=== PATIENT | female | born 1975 | race Caucasian/White ===

== ENCOUNTER 2017-09-28 06:56 | Inpatient (IN) | payer BC, OTHER ==
[2017-09-28] MEDS ORDERED: Sodium Chloride 0.9% 1000 ML 1,000 ML IV STA (07:38)
[2017-09-28] MEDS ORDERED: BENADRYL 50 MG/ML IV ONE (07:38)
[2017-09-28] MEDS ORDERED: Hydromorphone 1 mg/ml Ampule IV ONE (07:38)
[2017-09-28] MEDS ORDERED: DECADRON 10MG INJ. IV ONE (07:45)
--- NOTE | 2017-09-28 07:45 | ERPHSYRPT ---
- History of Present Illness Time Seen by Provider: 09/28/17 07:38 Source: patient Patient Subjective Stated Complaint: pt here for sore throat, she states about a week a she had strep throat and states she does not think it went away. fever at home Triage Nursing Assessment: pt alert, moaning and crying, walked in, resp easy.skin w/d/p. runny nose, throat red, Physician History: CC: sore throat Hx: 42 y/o patient formerly saw Dr Olivier. She had strep throat 2 weeks ago and was treated with PCN. She has hx of recurrent tonsillitis. She has return of sore throat, toothache, cough, fever, face pain, lymph node swelling. Severe in nature. No stridoe or diff breathing. Prior BTL and ablation. NKA. Timing/Duration: day(s) (few) Allergies/Adverse Reactions: No Known Drug Allergies Allergy (Unverified 09/28/17 07:13) Home Medications: No Reportable Medications [No Reported Medications] 09/28/17 [History] Hx Influenza Vaccination/Date Given: No Hx Pneumococcal Vaccination/Date Given: No Immunizations Up to Date: Yes - Review of Systems Constitutional: Fever, Fatigue, Malaise Eyes: No Symptoms, No Double Vision Ears, Nose, & Throat: Nose Congestion Respiratory: Cough Abdominal/Gastrointestinal: No Nausea, No Vomiting, No Diarrhea Skin: No Rash Neurological: No Headache All Other Systems: Reviewed and Negative - Past Medical History Pertinent Past Medical History: No - Past Surgical History Past Surgical History: Yes Female Surgical History: Tubal Ligation, Other Other Surgical History: ablasion - Social History Smoking Status: Current every day smoker Exposure to second hand smoke: Yes Drug Use: none Patient Lives Alone: No - Female History Hx Last Menstrual Period: post Hx Now: (BTL, ablation, HCG pending) - Nursing Vital Signs Nursing Vital Signs: Initial Vital Signs Temperature 98.7 F 09/28/17 07:06 Pulse Rate 106 H 09/28/17 07:06 Respiratory Rate 22 09/28/17 07:06 Blood Pressure 136/81 09/28/17 07:06 O2 Sat by Pulse Oximetry 97 09/28/17 07:06 Pain Scale Pain Intensity 5 - Physical Exam General Appearance: alert, thin Eye Exam: PERRL/EOMI Ears, Nose, Throat Exam: TMs normal, dry mucous membranes, other (large tonsils , fullness, left tonsil appears larger with possible abscess. No exudate. Tender anterior cervical LAD worse on left.) Neck Exam: No meningismus Respiratory Exam: normal breath sounds, lungs clear Cardiovascular Exam: regular rate/rhythm Gastrointestinal/Abdomen Exam: soft, No tenderness, No distention Extremity Exam: normal inspection, normal range of motion Neurologic Exam: alert, oriented x 3, cooperative, sensation nml, No motor deficits Skin Exam: warm, dry, No rash SpO2 Interpretation: normal SpO2: 97 Oxygen Delivery: Room Air - Course Nursing assessment & vital signs reviewed: Yes - CT Exams soft tissue neck CT Interpretation: Tele-radiologist Report (enlarged palatine tonsils favoring tonsillitis with left sided micro-abscess, bilateral cervical LAD presumed reactive.) Ordered Tests: Active Orders 24 hr Category Date Time Status IV Insertion STAT Care 09/28/17 07:38 Active NECK WITH CONTRAST [CT] Stat Exams 09/28/17 07:40 Completed CBC W DIFF Stat Lab 09/28/17 07:50 Completed CMP Stat Lab 09/28/17 07:50 Completed CULTURE, THROAT Stat Lab 09/28/17 07:50 Received HCG QUALITATIVE,SERUM Stat Lab 09/28/17 07:50 Completed Lactic Acid Stat Lab 09/28/17 07:46 Completed Manual Differential NC Stat Lab 09/28/17 07:50 Completed Borden Screen Stat Lab 09/28/17 07:50 Completed STREP SCREEN-BETA A Stat Lab 09/28/17 07:50 Completed Medication Summary Discontinued Medications Generic Name Dose Route Start Last Admin Trade Name Freq PRN Reason Stop Dose Admin Diphenhydramine HCl 25 mg 09/28/17 07:38 09/28/17 07:55 Benadryl 50 Mg/Ml IV 09/28/17 07:39 25 mg STAT ONE Administration Diphenhydramine HCl Confirm 09/28/17 07:53 Benadryl 50 Mg/Ml Administered 09/28/17 07:54 Dose 50 mg .ROUTE .STK-MED ONE Hydromorphone HCl 1 mg 09/28/17 07:38 09/28/17 07:55 Hydromorphone 1 Mg/Ml Ampule IV 09/28/17 07:39 1 mg STAT ONE Administration Hydromorphone HCl Confirm 09/28/17 07:53 Dilaudid 2 Mg Injection Administered 09/28/17 07:54 Dose 2 mg .ROUTE .STK-MED ONE Sodium Chloride 1,000 mls @ 999 mls/hr 09/28/17 07:38 09/28/17 07:55 Sodium Chloride 0.9% 1000 Ml IV 09/28/17 08:38 999 mls/hr .Q1H1M STA Administration Dexamethasone Sodium Phosphate 51 mls @ 102 mls/hr 09/28/17 08:00 09/28/17 08 :07 10 mg/ Sodium Chloride IV 09/28/17 08:29 102 mls/hr 0800 ARTURO Administration Sodium Chloride Confirm 09/28/17 07:53 Sodium Chloride 0.9% 1000 Ml Administered 09/28/17 07:54 Dose 1,000 mls @ ud .ROUTE .STK-[facility] ONE Ampicillin Sodium/Sulbactam Sodium 3 gm in 100 mls @ 200 mls/hr 09/28/17 08: 30 09/28/17 09:24 Unasyn 3gm / Nacl 100ml IV 09/28/17 08:59 200 mls/hr STAT STA Administration Ampicillin Sodium/Sulbactam Sodium Confirm 09/28/17 09:17 Unasyn 3gm / Nacl 100ml Administered 09/28/17 09:18 Dose 3 gm in 100 mls @ ud .ROUTE .[facility] ONE Lab/Rad Data: Laboratory Result Diagrams 09/28/17 07:50 09/28/17 07:50 Laboratory Results 09/28/17 09/28/17 09/28/17 Range/Units 07:50 07:50 07:50 WBC (4.0-10.5) K/mm3 RBC (4.1-5.4) M/mm3 Hgb (12.0-16.0) gm/dl Hct (35-47) % MCV (78-100) fl MCH (26-32) pg MCHC (32-36) g/dl RDW (11.5-14.0) % Plt Count (150-450) K/mm3 MPV (6-9.5) fl Segmented Neutrophils (36.0-66.0) % Lymphocytes (Manual) (24-44) % Monocytes (Manual) (0.0-12.0) % Basophils (Manual) (0.0-1.0) % Differential Comment Platelet Estimate (NORMAL) Sodium 139 (137-145) mmol/L Potassium 3.5 (3.5-5.1) mmol/L Chloride 104 (98-107) mEq/L Carbon Dioxide 25 (22-30) mmol/L Anion Gap 14.1 (5-15) MEQ/L BUN 8 (7-17) mg/dl Creatinine 0.57 (0.52-1.04) mg/dl Estimated GFR > 60 ML/MIN Glucose 90 (74-106) mg/dL Lactic Acid (0.4-2.0) Calcium 9.2 (8.4-10.2) mg/dL Total Bilirubin 0.70 (0.2-1.3) mg/d? AST 14 (14-36) U/L ALT 12 (0-35) U/L Alkaline Phosphatase 134 H (38-126) U/L Serum Total Protein 7.9 (6.3-8.2) mg/dl Albumin 3.9 (3.5-5.0) g/dl Serum , Qual NEGATIVE (Negative) Monoscreen NEGATIVE (Negative) Streptococcus Screen NEGATIVE (Negative) 09/28/17 09/28/17 Range/Units 07:50 07:46 WBC 19.8 H (4.0-10.5) K/mm3 RBC 4.48 (4.1-5.4) M/mm3 Hgb 14.1 (12.0-16.0) gm/dl Hct 42.2 (35-47) % MCV 94.2 (78-100) fl MCH 31.5 (26-32) pg MCHC 33.4 (32-36) g/dl RDW 13.6 (11.5-14.0) % Plt Count 426 (150-450) K/mm3 MPV 9.4 (6-9.5) fl Segmented Neutrophils 87 H (36.0-66.0) % Lymphocytes (Manual) 6 L (24-44) % Monocytes (Manual) 5 (0.0-12.0) % Basophils (Manual) 2 H (0.0-1.0) % Differential Comment NORMAL Platelet Estimate NORMAL (NORMAL) Sodium (137-145) mmol/L Potassium (3.5-5.1) mmol/L Chloride (98-107) mEq/L Carbon Dioxide (22-30) mmol/L Anion Gap (5-15) MEQ/L BUN (7-17) mg/dl Creatinine (0.52-1.04) mg/dl Estimated GFR ML/MIN Glucose (74-106) mg/dL Lactic Acid 0.9 (0.4-2.0) Calcium (8.4-10.2) mg/dL Total Bilirubin (0.2-1.3) mg/d? AST (14-36) U/L ALT (0-35) U/L Alkaline Phosphatase (38-126) U/L Serum Total Protein (6.3-8.2) mg/dl Albumin (3.5-5.0) g/dl Serum , Qual (Negative) Monoscreen (Negative) Streptococcus Screen (Negative) - Progress Progress Note: 09/28/17 07:[address] to evaluate for tonsillar abscess. 09/28/17 11:25 IV decadron given. IV Unasyn given. CAlled Dr Crocker (oc) and will place in obs for IV abtx. Pt agrees. Discussed with : Obi Will see patient in: hospital (observation) Counseled pt/family regarding: lab results, diagnosis, need for follow-up, rad results - Departure Time of Disposition: 11:25 Departure Disposition: Observation Clinical Impression: Acute tonsillitis, tonsilar microabscesses Condition: Fair Critical Care Time: No
[2017-09-28] MEDS ORDERED: BENADRYL 50 MG/ML ONE (07:53)
[2017-09-28] MEDS ORDERED: DILAUDID 2 MG INJECTION ONE (07:53)
[2017-09-28] MEDS ORDERED: Sodium Chloride 0.9% 1000 ML 1,000 ML ONE (07:53)
[2017-09-28] MEDS ORDERED: DECADRON IV SCH (08:00)
[2017-09-28] MEDS ORDERED: SODIUM CHLORIDE 0.9% IV SCH (08:00)
[2017-09-28 08:04] LABS: Hematocrit 42.2 % (35-47); Hemoglobin 14.1 gm/dl (12.0-16.0); Mean Cell Volume 94.2 fl (78-100); Mean Corpuscular Hemoglobin 31.5 pg (26-32); Mean Corpuscular Hgb Concent. 33.4 g/dl (32-36); Mean Platelet Volume 9.4 fl (6-9.5); Platelet Count 426 K/mm3 (150-450); Red Blood Count 4.48 M/mm3 (4.1-5.4); Red Cell Distribution Width 13.6 % (11.5-14.0); White Blood Count 19.8 K/mm3 (4.0-10.5)
[2017-09-28 08:27] LABS: ALBUMIN 3.9 g/dl (3.5-5.0); ALKALINE PHOSPHATASE 134 U/L (38-126); ANION GAP 14.1 MEQ/L (5-15); BLOOD UREA NITROGEN 8 mg/dl (7-17); CHLORIDE 104 mEq/L (98-107); Calcium 9.2 mg/dL (8.4-10.2); Carbon Dioxide 25 mmol/L (22-30); Creatinine 1 0.57 mg/dl (0.52-1.04); Glucose 90 mg/dL (74-106); Potassium 3.5 mmol/L (3.5-5.1); SGOT/AST 14 U/L (14-36); SGPT/ALT 12 U/L (0-35); SODIUM 139 mmol/L (137-145); Total Protein 7.9 mg/dl (6.3-8.2)
[2017-09-28 08:28] LABS: HCG QUALITATIVE,SERUM NEGATIVE (Negative); Mono Screen NEGATIVE (Negative)
[2017-09-28] MEDS ORDERED: Unasyn 3GM / NaCl 100ML 3 GM/100 ML IVPB IV STA (08:30)
[2017-09-28 08:40] LABS: Basophil 2 % (0.0-1.0); Lymphocytes 6 % (24-44); Monocyte 5 % (0.0-12.0); Neutrophils 87 % (36.0-66.0); Platelet Estimate NORMAL (NORMAL); Total Cells Counted 100
[2017-09-28 08:41] LABS: Granulocyte Absolute (ANC) 17.2 (1.4-6.9)
[2017-09-28] MEDS ORDERED: Unasyn 3GM / NaCl 100ML 3 GM/100 ML IVPB ONE (09:17)
--- NOTE | 2017-09-28 10:15 | XRAY ---
Indication: Sore throat. Possible tonsillar abscess. Multiple contiguous axial images obtained through the neck using 80 cc Isovue 370 contrast. Sagittal and coronal reformatted images obtained. Comparison: None [place] tonsils are bilaterally enlarged markedly narrowing the oropharynx. There are a few left-sided micro-abscesses, largest 8 x 13 mm. Several enlarged bilateral cervical lymph nodes, largest 1.7 x 2.3 cm just lateral to the left carotid bulb. Additional smaller scattered centimeter/subcentimeter cervical, submandibular, and supraclavicular nodes. Remaining supra and infraglottic airway widely patent. Normal epiglottis. Major arteries and veins are normal in course and caliber. Thyroid gland enhances homogeneously. Parotid and submandibular glands bilaterally symmetric. Visualized osseous structures and cervical spine intact. Base of the brain unremarkable. Minimal biapical subpleural cystic changes. Impression: 1. Enlarged palatine tonsils favoring tonsillitis with left-sided micro-abscesses. 2. Bilateral cervical lymphadenopathy presumed reactive. CT DI 11.13
[2017-09-28] MEDS ORDERED: TYLENOL 325 MG PO PRN (12:00)
[2017-09-28] MEDS: Unasyn 1.5GM / NaCl 100ML 1.5 GM/100 ML IVPB IV SCH ×3 (12:32→23:24)
[2017-09-28] MEDS: D5W/0.45NS W/ 20mEq KCl 1000 ML 1,000 ML IV SCH ×2 (12:50→23:24)
[2017-09-28] MEDS: DILAUDID 2 MG INJECTION IV PRN ×3 (12:58→23:23)
[2017-09-29] MEDS: DILAUDID 2 MG INJECTION IV PRN ×4 (04:45→20:06)
[2017-09-29] MEDS: Unasyn 1.5GM / NaCl 100ML 1.5 GM/100 ML IVPB IV SCH ×4 (05:22→23:00)
[2017-09-29 05:35] LABS: Hematocrit 35.7 % (35-47); Hemoglobin 11.7 gm/dl (12.0-16.0); Mean Cell Volume 96.2 fl (78-100); Mean Corpuscular Hemoglobin 31.5 pg (26-32); Mean Corpuscular Hgb Concent. 32.8 g/dl (32-36); Mean Platelet Volume 9.3 fl (6-9.5); Platelet Count 374 K/mm3 (150-450); Red Blood Count 3.71 M/mm3 (4.1-5.4); Red Cell Distribution Width 13.6 % (11.5-14.0); White Blood Count 18.6 K/mm3 (4.0-10.5)
[2017-09-29 06:02] LABS: ALBUMIN 3.1 g/dl (3.5-5.0); ALKALINE PHOSPHATASE 92 U/L (38-126); ANION GAP 11.1 MEQ/L (5-15); BLOOD UREA NITROGEN 6 mg/dl (7-17); CHLORIDE 107 mEq/L (98-107); Calcium 8.4 mg/dL (8.4-10.2); Carbon Dioxide 25 mmol/L (22-30); Creatinine 1 0.48 mg/dl (0.52-1.04); Glucose 111 mg/dL (74-106); Potassium 4.4 mmol/L (3.5-5.1); SGOT/AST 9 U/L (14-36); SGPT/ALT 10 U/L (0-35); SODIUM 138 mmol/L (137-145); Total Protein 6.6 mg/dl (6.3-8.2)
[2017-09-29 06:26] LABS: Lymphocytes 12 % (24-44); Monocyte 5 % (0.0-12.0); Neutrophils 83 % (36.0-66.0); Platelet Estimate NORMAL (NORMAL); Total Cells Counted 100; Toxic Granulation 1+
--- NOTE | 2017-09-29 08:53 | PCM.HP ---
History of Present Illness - Chief Complaint Chief Complaint: acute tonsilitis, tonsilar microabcesses History of Present Illness: is a 42 year old female pt with no local MD who c/o sore throat for several weeks. She has been to [facility] ER and was treated for sore throat and took all the penicillin without improvement. She was having fever to 102 at home and fatigue. Not eating much. Was having increased pain and came to [facility] ER where she was found on CT to have microabscesses on the L. Given dexamethasone x1 and admitted on IV unasyn. This morning she is somewhat better , tolerating jello but would like a soft diet. Afebrile. - Review of Systems Constitutional: Fever, Weakness Ears, Nose, & Throat: Ear Pain (on L), Throat Pain Cardiac: Chest Pain (with breathing at times; hx asthma ) Psychological: Anxiety, Depression, No Suicidal Ideations All Other Systems: Reviewed and Negative Medications & Allergies Home Medications: Home Medication List No Reportable Medications [No Reported Medications] 09/28/17 [History Confirmed 09/28/17] Allergies/Adverse Reactions: Allergies Allergy/AdvReac Type Severity Reaction Status Date / Time No Known Drug Allergies Allergy Unverified 09/28/17 07:13 - Past Medical History Past Medical History: No Neurological History: No Pertinent History ENT History: No Pertinent History Cardiac History: No Pertinent History Respiratory History: Asthma Endocrine Medical History: No Pertinent History Musculoskelatal History: Arthritis GI Medical History: No Pertinent History History: No Pertinent History Pyscho-Social History: Anxiety Reproductive Disorders: No Pertinent History - Female History Hx Last Menstrual Period: hyst Are you now?: No - Past Surgical History Past Surgical History: Yes Female Surgical History: Tubal Ligation, Other Other Surgical History: ablasion - Social History Smoking Status: Current every day smoker Exposure to second hand smoke: Yes Alcohol: None Drug Use: none - Physical Exam Vital Signs: Vital Signs - 24 hr Temp Pulse Resp BP Pulse Ox 09/29/17 07:26 97.9 F 96 H 18 131/86 97 09/29/17 04:15 97.4 F 78 22 141/87 97 09/29/17 00:21 97.6 F 87 20 130/95 97 09/28/17 19:53 97.5 F 90 18 127/74 96 09/28/17 16:06 97.9 F 90 18 126/88 98 09/28/17 12:21 97.4 F 88 14 125/80 96 09/28/17 12:00 97.4 F 88 14 125/80 96 09/28/17 11:26 97 09/28/17 09:35 90 16 124/87 98 General Appearance: mild distress Neurologic Exam: oriented x 3, cooperative Eye Exam: eyes nml inspection Ears, Nose, Throat Exam: TMs normal, other (oropharynx erythematous, no exudate , tonsils 2-3+) Neck Exam: other (appears somewhat edematous bilat, L>R. ttp L>R. bilat cervical LAD L>R) Respiratory Exam: normal breath sounds, lungs clear, No crackles/rales, No rhonchi, No wheezing Cardiovascular Exam: regular rate/rhythm, normal heart sounds, No murmur Gastrointestinal/Abdomen Exam: soft, normal bowel sounds, No tenderness, No distention, No mass, No guarding, No rebound Back Exam: normal inspection, No rash Skin Exam: normal color, warm, dry, No rash Results - Labs Lab/Micro Results: Lab Results-Last 24 Hours 09/29/17 09/29/17 Range/Units 05:18 05:18 WBC 18.6 H (4.0-10.5) K/mm3 RBC 3.71 L (4.1-5.4) M/mm3 Hgb 11.7 L (12.0-16.0) gm/dl Hct 35.7 (35-47) % MCV 96.2 (78-100) fl MCH 31.5 (26-32) pg MCHC 32.8 (32-36) g/dl RDW 13.6 (11.5-14.0) % Plt Count 374 (150-450) K/mm3 MPV 9.3 (6-9.5) fl Segmented Neutrophils 83 H (36.0-66.0) % Lymphocytes (Manual) 12 L (24-44) % Monocytes (Manual) 5 (0.0-12.0) % Differential Comment NORMAL Toxic Granulation 1+ Platelet Estimate NORMAL (NORMAL) Sodium 138 (137-145) mmol/L Potassium 4.4 (3.5-5.1) mmol/L Chloride 107 (98-107) mEq/L Carbon Dioxide 25 (22-30) mmol/L Anion Gap 11.1 (5-15) MEQ/L BUN 6 L (7-17) mg/dl Creatinine 0.48 L (0.52-1.04) mg/dl Estimated GFR > 60 ML/MIN Glucose 111 H (74-106) mg/dL Calcium 8.4 (8.4-10.2) mg/dL Total Bilirubin 0.20 (0.2-1.3) mg/d? AST 9 L (14-36) U/L ALT 10 (0-35) U/L Alkaline Phosphatase 92 (38-126) U/L Serum Total Protein 6.6 (6.3-8.2) mg/dl Albumin 3.1 L (3.5-5.0) g/dl Assessment/Plan (1) Acute tonsillitis Current Visit: Yes Status: Acute Assessment & Plan: On Unasyn IV with some improvement. Will add more steroids. increase diet to soft. Code(s): J03.90 - ACUTE TONSILLITIS, UNSPECIFIED (2) Depression Current Visit: Yes Status: Chronic Qualifiers: Depression Type: major depressive disorder Active/Remission status: currently active Psychotic features: without psychotic features Assessment & Plan: Will restart her celexa; was on it 2 yrs ago. Code(s): F32.9 - MAJOR DEPRESSIVE DISORDER, SINGLE EPISODE, UNSPECIFIED
[2017-09-29] MEDS ORDERED: CHLORASEPTIC SPRAY 180 ML PO PRN (09:02)
[2017-09-29] MEDS: ceLEXa 20 MG PO SCH (09:44)
[2017-09-29] MEDS: solu-MEDROL 40 MG IV SCH ×3 (09:44→22:53)
[2017-09-29] MEDS: D5W/0.45NS W/ 20mEq KCl 1000 ML 1,000 ML IV SCH ×2 (11:17→22:59)
[2017-09-30] MEDS: DILAUDID 2 MG INJECTION IV PRN (05:16)
[2017-09-30] MEDS: solu-MEDROL 40 MG IV SCH ×3 (05:18→21:28)
[2017-09-30] MEDS: Unasyn 1.5GM / NaCl 100ML 1.5 GM/100 ML IVPB IV SCH ×4 (05:18→23:43)
--- NOTE | 2017-09-30 08:54 | PCM.NOTE ---
Date and Time: 09/30/17 0849 Subjective Assessment: patient reports she is feeling much better today, tolerating po intake. swelling in neck is improved at this time. Objective Exam General Appearance: no apparent distress, alert Skin Exam: normal color, warm, dry Eye Exam: PERRL, EOMI, eyes nml inspection Ears, Nose, Throat Exam: pharyngeal erythema, other (mild adenopathy in the neck ) Respiratory Exam: normal breath sounds, lungs clear, No respiratory distress Cardiovascular Exam: regular rate/rhythm, normal heart sounds Gastrointestinal/Abdomen Exam: soft, No tenderness, No mass OBJECTIVE DATA Vital Signs: Vital Signs - 24 hr Temp Pulse Resp BP Pulse Ox 09/30/17 07:20 97.4 F 80 16 144/88 95 09/30/17 03:42 98.2 F 70 16 135/89 96 09/30/17 00:00 97.4 F 68 18 161/91 96 09/29/17 20:00 97.4 F 84 18 135/90 95 09/29/17 16:00 97.8 F 98 H 18 133/82 96 09/29/17 11:38 98 F 92 H 18 125/81 98 Pain Assessment - Last Documented Pain Intensity 4 Pain Scale Used 0-10 Pain Scale Intake and Output: Intake & Output 09/27/17 09/28/17 09/29/17 09/30/17 11:59 11:59 11:59 11:59 Intake Total 4537 Balance 4537 Assessment/Plan (1) Tonsillar abscess Current Visit: Yes Status: Acute Assessment & Plan: continue IV Unasyn Code(s): J36 - PERITONSILLAR ABSCESS (2) Acute tonsillitis Current Visit: Yes Status: Acute Code(s): J03.90 - ACUTE TONSILLITIS, UNSPECIFIED (3) Failure of outpatient treatment Current Visit: Yes Status: Acute Code(s): Z78.9 - OTHER SPECIFIED HEALTH STATUS
[2017-09-30] MEDS: ceLEXa 20 MG PO SCH (10:19)
[2017-09-30] MEDS: D5W/0.45NS W/ 20mEq KCl 1000 ML 1,000 ML IV SCH ×2 (10:19→21:28)
[2017-10-01 04:36] VITALS: PULSE 66
[2017-10-01] MEDS: Unasyn 1.5GM / NaCl 100ML 1.5 GM/100 ML IVPB IV SCH (05:58)
[2017-10-01] MEDS: solu-MEDROL 40 MG IV SCH (05:58)
[2017-10-01 05:59] LABS: Hematocrit 37.7 % (35-47); Hemoglobin 12.6 gm/dl (12.0-16.0); Mean Corpuscular Hemoglobin 31.4 pg (26-32); Mean Corpuscular Hgb Concent. 33.4 g/dl (32-36); Mean Platelet Volume 9.5 fl (6-9.5); Platelet Count 396 K/mm3 (150-450); Red Blood Count 4.01 M/mm3 (4.1-5.4); Red Cell Distribution Width 13.2 % (11.5-14.0); White Blood Count 12.4 K/mm3 (4.0-10.5)
[2017-10-01 06:30] LABS: ALBUMIN 3.2 g/dl (3.5-5.0); ALKALINE PHOSPHATASE 89 U/L (38-126); ANION GAP 12.8 MEQ/L (5-15); BLOOD UREA NITROGEN 5 mg/dl (7-17); CHLORIDE 105 mEq/L (98-107); Calcium 8.7 mg/dL (8.4-10.2); Carbon Dioxide 25 mmol/L (22-30); Creatinine 1 0.45 mg/dl (0.52-1.04); Glucose 133 mg/dL (74-106); Potassium 3.9 mmol/L (3.5-5.1); SGOT/AST 13 U/L (14-36); SGPT/ALT 16 U/L (0-35); SODIUM 138 mmol/L (137-145); Total Protein 6.9 mg/dl (6.3-8.2)
[2017-10-01 07:13] VITALS: BP 182/83; O2SAT 98
[2017-10-01 07:49] LABS: Lymphocytes 13 % (24-44); Monocyte 2 % (0.0-12.0); Neutrophils 85 % (36.0-66.0); Platelet Estimate NORMAL (NORMAL); Total Cells Counted 100; Toxic Granulation 1+
--- NOTE | 2017-10-01 08:30 | PCM.DS ---
Discharge Summary Date of Admission: 09/29/17 09:48 Admitting Physician: IWONA CROCKER Primary Care Provider: NO FAMILY DOCTOR Allergies Allergies No Known Drug Allergies Allergy (Unverified 09/28/17 07:13) Hospital Summary - Hospital Course Hospital Course: patient admitted by Dr Crocker with tonsillitis and peritonsillar microabscess on ct, has improved drastically with IV unasyn and steroids, tolerating po and swelling has resolved in the side of her neck. she had failed outpatient therapy with liquid penicillin prior to admission. - Vitals & Intake/Output Vital Signs: Vital Signs Temperature 98.9 F 10/01/17 07:12 Pulse Rate 66 10/01/17 07:12 Respiratory Rate 16 10/01/17 07:12 Blood Pressure 182/83 10/01/17 07:12 O2 Sat by Pulse Oximetry 98 10/01/17 07:12 Intake & Output: Intake & Output 09/28/17 09/29/17 09/30/17 10/01/17 11:59 11:59 11:59 12:59 Intake Total 4897 3239 Balance 4897 3239 - Lab Result Diagrams: 10/01/17 05:59 10/01/17 05:59 Lab Results-Last 24 Hrs: Lab Results-Last 24 Hours 10/01/17 10/01/17 Range/Units 05:59 05:59 WBC 12.4 H (4.0-10.5) K/mm3 RBC 4.01 L (4.1-5.4) M/mm3 Hgb 12.6 (12.0-16.0) gm/dl Hct 37.7 (35-47) % MCV 94.0 (78-100) fl MCH 31.4 (26-32) pg MCHC 33.4 (32-36) g/dl RDW 13.2 (11.5-14.0) % Plt Count 396 (150-450) K/mm3 MPV 9.5 (6-9.5) fl Segmented Neutrophils 85 H (36.0-66.0) % Lymphocytes (Manual) 13 L (24-44) % Monocytes (Manual) 2 (0.0-12.0) % Differential Comment NORMAL Toxic Granulation 1+ Platelet Estimate NORMAL (NORMAL) Sodium 138 (137-145) mmol/L Potassium 3.9 (3.5-5.1) mmol/L Chloride 105 (98-107) mEq/L Carbon Dioxide 25 (22-30) mmol/L Anion Gap 12.8 (5-15) MEQ/L BUN 5 L (7-17) mg/dl Creatinine 0.45 L (0.52-1.04) mg/dl Estimated GFR > 60 ML/MIN Glucose 133 H (74-106) mg/dL Calcium 8.7 (8.4-10.2) mg/dL Total Bilirubin 0.20 (0.2-1.3) mg/d? AST 13 L (14-36) U/L ALT 16 (0-35) U/L Alkaline Phosphatase 89 (38-126) U/L Serum Total Protein 6.9 (6.3-8.2) mg/dl Albumin 3.2 L (3.5-5.0) g/dl Discharge Exam General Appearance: no apparent distress, alert Skin Exam: normal color, warm, dry Eye Exam: PERRL, EOMI, eyes nml inspection Ears, Nose, Throat Exam: normal ENT inspection, pharynx normal, moist mucous membranes Neck Exam: normal inspection, non-tender, supple, full range of motion, No lymphadenopathy (resolved) Respiratory Exam: normal breath sounds, lungs clear, No respiratory distress Cardiovascular Exam: regular rate/rhythm, normal heart sounds Extremity Exam: normal inspection, normal range of motion Final Diagnosis/Problem List - Final Discharge Diagnosis/Problem (1) Tonsillar abscess Current Visit: Yes Status: Acute (2) Acute tonsillitis Current Visit: Yes Status: Acute (3) Failure of outpatient treatment Current Visit: Yes Status: Acute - Discharge Disposition: Home, Self-Care Condition: Good Prescriptions: New Amoxicillin/Potassium Clav [Augmentin 875-125 Tablet] 875 mg PO BID #14 tablet Methylprednisolone [Medrol Dose Pack] 4 mg PO UD #1 pack Follow up with: IWONA CROCKER [ACTIVE STAFF] - 1 Week
[2017-10-01] MEDS: ceLEXa 20 MG PO SCH (09:13)
== END 2017-10-01 10:15 | disposition home or self-care (01) | DRG 153 ==
LOC: ED 06:56 → MED SURG 11:50 → OBSVTOIN 09-29 09:48
PROVIDERS: ADMIT Family Medicine; ATTEND Family Medicine
DX: J03.90 Acute tonsillitis, unspecified (principal); Z78.9 Other specified health status; F41.9 Anxiety disorder, unspecified; J45.909 Unspecified asthma, uncomplicated; F17.200 Nicotine dependence, unspecified, uncomplicated; F32.9 Major depressive disorder, single episode, unspecified
CPT/HCPCS: 36000; 36415; 70491; 80053; 83605; 84703; 85025; 86308; 87070; 87430; 96360; 96365; 96366; 96374; 96375; 99285; G0378; J0295; J1100; J1170; J1200; J2920; A9270-GY

== ENCOUNTER 2020-05-30 12:32 | Emergency (ER) | payer BC, MEDICAID ==
[2020-05-30] MEDS ORDERED: Zofran 4 MG/2 ML VIAL IV ONE (12:40)
[2020-05-30] MEDS ORDERED: Sodium Chloride 0.9% 1000 ML 1,000 ML IV STA (12:40)
[2020-05-30] MEDS ORDERED: TORAdol 30 mg Injection IV ONE (12:40)
[2020-05-30] MEDS ORDERED: Zofran 4 MG/2 ML VIAL ONE (12:54)
[2020-05-30] MEDS ORDERED: TORAdol 30 mg Injection ONE (12:54)
[2020-05-30] MEDS ORDERED: Sodium Chloride 0.9% 1000 ML 1,000 ML ONE (12:54)
[2020-05-30 13:10] LABS: Absolute Neutrophil Ct (ANC) 6.23 (1.4-6.9); BASOPHIL % 0.1 % (0.0-0.4); Basophil (Absolute #) 0.01 (0-0.4); Eosinophil % 2.4 % (0.00-5.0); Eosinophil (Absolute #) 0.24 (0-0.5); Hemoglobin 13.8 gm/dl (12.0-16.0); Lymphocyte (Absolute #) 2.52 (1.0-4.6); Lymphocytes % 24.9 % (24.0-44.0); Mean Cell Volume 98.4 fl (78-100); Mean Corpuscular Hemoglobin 32.3 pg (26-32); Mean Corpuscular Hgb Concent. 32.9 g/dl (32-36); Mean Platelet Volume 9.2 fl (7.5-11.0); Monocyte (Absolute #) 1.12 (0.0-1.3); Monocytes % 11.1 % (0.0-12.0); Neutrophil % 61.5 % (36.0-66.0); Platelet Count 325 K/mm3 (150-450); Red Blood Count 4.27 M/mm3 (4.1-5.4); Red Cell Distribution Width 13.7 % (11.5-14.0); White Blood Count 10.1 K/mm3 (4.0-10.5)
[2020-05-30 13:17] LABS: Appearance CLOUDY (CLEAR); Bacteria FEW /HPF (NEGATIVE); Bilirubin NEGATIVE (NEGATIVE); Blood SMALL Ery/ul (0-5); Epithelial Cells FEW /HPF (FEW); Glucose NEGATIVE (NEGATIVE); Ketones NEGATIVE (NEGATIVE); Leukocyte Esterase LARGE (NEGATIVE); Mucus SLIGHT /HPF (NEGATIVE); Nitrite NEGATIVE (NEGATIVE); Protein,Urine Dip NEGATIVE (Negative); Specific Gravity 1.023 (1.005-1.025); Urobilinogen NEGATIVE mg/dL (0-1); WBC 26-50 /HPF (0-5)
--- NOTE | 2020-05-30 13:19 | ERPHSYRPT ---
- History of Present Illness Time Seen by Provider: 05/30/20 12:34 Source: patient Exam Limitations: no limitations Patient Subjective Stated Complaint: Right sided abdominal pain Triage Nursing Assessment: Patient brought back to ED via w/c and transferred self to bed. Patient A+O X3. Patient's skin pink, warm and dry. Patient complains of right sided abdominal pain 10/10 constant sharp pain. Patient states on she bent down and heard a "pop" on her right side of abdomen and has been in pain ever since. Patient's abdomen soft and round with BS X 4. Patient denies N/V. Patient states she is having occasional diarrhea. Physician History: Right-sided chest and upper abdomen pain. No falls no trauma no fever no chills. Has been going on for a few days. Location: right flank and chest Quality: sharp Radiation: none Severity: moderate Duration: acute on chronic Timing: bent over and felt a pop Modifying factors/associated signs and symptoms: home OTC medication Allergies/Adverse Reactions: No Known Drug Allergies Allergy (Verified 05/30/20 14:41) Hx Influenza Vaccination/Date Given: No Hx Pneumococcal Vaccination/Date Given: No Immunizations Up to Date: Yes Travel Risk - International Travel Have you traveled outside of the country in past 3 weeks: No - Coronavirus Screening Are you exhibiting any of the following symptoms?: No Close contact with a COVID-19 positive Pt in past 14-21 Days: No - Review of Systems Constitutional: No Fever, No Chills Eyes: No Symptoms Ears, Nose, & Throat: No Symptoms Respiratory: No Cough, No Dyspnea Cardiac: Chest Pain, No Edema, No Syncope Abdominal/Gastrointestinal: Abdominal Pain, Nausea, No Vomiting, No Diarrhea Genitourinary Symptoms: No Dysuria Musculoskeletal: No Back Pain, No Neck Pain Skin: No Rash Neurological: No Dizziness, No Focal Weakness, No Sensory Changes Psychological: No Symptoms Endocrine: No Symptoms All Other Systems: Reviewed and Negative - Past Medical History Pertinent Past Medical History: No Neurological History: No Pertinent History ENT History: No Pertinent History Cardiac History: No Pertinent History Respiratory History: Asthma Endocrine Medical History: No Pertinent History Musculoskeletal History: Arthritis GI Medical History: No Pertinent History History: No Pertinent History Psycho-Social History: Anxiety Female Reproductive Disorders: No Pertinent History - Past Surgical History Past Surgical History: Yes Female Surgical History: Tubal Ligation, Other Other Surgical History: ablasion - Social History Smoking Status: Current every day smoker How long have you smoked: years Exposure to second hand smoke: Yes Drug Use: none Patient Lives Alone: No - Female History Hx Last Menstrual Period: ablation Hx Now: No - Nursing Vital Signs Nursing Vital Signs: Initial Vital Signs Temperature 98.0 F 05/30/20 12:43 Pulse Rate 107 H 05/30/20 12:43 Respiratory Rate 18 05/30/20 12:43 Blood Pressure 142/96 05/30/20 12:43 O2 Sat by Pulse Oximetry 100 05/30/20 12:43 Pain Scale Pain Intensity 10 - Physical Exam General Appearance: no apparent distress, alert Eye Exam: PERRL/EOMI, eyes nml inspection Ears, Nose, Throat Exam: normal ENT inspection, TMs normal, pharynx normal, moist mucous membranes Neck Exam: normal inspection, non-tender, supple, full range of motion Respiratory Exam: normal breath sounds, lungs clear, No respiratory distress Cardiovascular Exam: regular rate/rhythm, normal heart sounds, normal peripheral pulses Gastrointestinal/Abdomen Exam: soft, normal bowel sounds, other (Right-sided flank pain extending into the right chest.), No tenderness, No mass Back Exam: normal inspection, normal range of motion, No CVA tenderness, No vertebral tenderness Extremity Exam: normal inspection, normal range of motion, pelvis stable Neurologic Exam: alert, oriented x 3, cooperative, normal mood/affect, nml cerebellar function, nml station & gait, sensation nml, No motor deficits Skin Exam: normal color, warm, dry, No rash Lymphatic Exam: No adenopathy SpO2: 100 - Course Nursing assessment & vital signs reviewed: Yes EKG Interpreted by Me: Sinus Rhythm Ordered Tests: Active Orders 24 hr Category Date Time Status EKG-ER Only STAT Care 05/30/20 12:40 Active IV Insertion STAT Care 05/30/20 12:40 Active ABDOMEN AND PELVIS W CONTRAST [CT] Routine Exams 05/30/20 14:10 Taken CHEST WITH CONTRAST [CT] Stat Exams 05/30/20 12:47 Taken CBC W DIFF Stat Lab 05/30/20 12:53 Completed CMP Stat Lab 05/30/20 12:53 Completed CULTURE,URINE Stat Lab 05/30/20 12:53 Received HCG,QUALITATIVE URINE Stat Lab 05/30/20 12:53 Completed LIPASE Stat Lab 05/30/20 12:53 Completed TROPONIN Q3H Lab 05/30/20 13:15 Completed TROPONIN Q3H Lab 05/30/20 16:30 Ordered TROPONIN Q3H Lab 05/30/20 19:30 Ordered TROPONIN Q3H Lab 05/30/20 22:30 Ordered UA W/RFX UR CULTURE Stat Lab 05/30/20 12:53 Completed Medication Summary Discontinued Medications Generic Name Dose Route Start Last Admin Trade Name Tavon PRN Reason Stop Dose Admin Sodium Chloride 1,000 mls @ 999 mls/hr 05/30/20 12:40 05/30/20 14:43 Sodium Chloride 0.9% 1000 Ml IV 05/30/20 13:40 Infused .Q1H1M STA Infusion Sodium Chloride Confirm 05/30/20 12:54 Sodium Chloride 0.9% 1000 Ml Administered 05/30/20 12:55 Dose 1,000 mls @ ud .ROUTE .STK-MED ONE Ketorolac Tromethamine 30 mg 05/30/20 12:40 05/30/20 13:10 Toradol 30 Mg Injection IV 05/30/20 12:41 30 mg STAT ONE Administration Ketorolac Tromethamine Confirm 05/30/20 12:54 Toradol 30 Mg Injection Administered 05/30/20 12:55 Dose 30 mg .ROUTE .STK-MED ONE Ondansetron HCl 4 mg 05/30/20 12:40 05/30/20 13:09 Zofran 4 Mg/2 Ml Vial IV 05/30/20 12:41 4 mg STAT ONE Administration Ondansetron HCl Confirm 05/30/20 12:54 Zofran 4 Mg/2 Ml Vial Administered 05/30/20 12:55 Dose 4 mg .ROUTE .STK-MED ONE Lab/Rad Data: Laboratory Result Diagrams 05/30/20 12:53 05/30/20 12:53 Laboratory Results 05/30/20 05/30/20 05/30/20 Range/Units 13:15 12:53 12:53 WBC 10.1 (4.0-10.5) K/mm3 RBC 4.27 (4.1-5.4) M/mm3 Hgb 13.8 (12.0-16.0) gm/dl Hct 42.0 (35-47) % MCV 98.4 (78-100) fl MCH 32.3 H (26-32) pg MCHC 32.9 (32-36) g/dl RDW 13.7 (11.5-14.0) % Plt Count 325 (150-450) K/mm3 MPV 9.2 (7.5-11.0) fl Gran % 61.5 (36.0-66.0) % Eos # (Auto) 0.24 (0-0.5) Absolute Lymphs (auto) 2.52 (1.0-4.6) Absolute Monos (auto) 1.12 (0.0-1.3) Lymphocytes % 24.9 (24.0-44.0) % Monocytes % 11.1 (0.0-12.0) % Eosinophils % 2.4 (0.00-5.0) % Basophils % 0.1 (0.0-0.4) % Absolute Granulocytes 6.23 (1.4-6.9) Basophils # 0.01 (0-0.4) Sodium 137 (137-145) mmol/L Potassium 3.8 (3.5-5.1) mmol/L Chloride 107 (98-107) mmol/L Carbon Dioxide 26 (22-30) mmol/L Anion Gap 8.5 (5-15) MEQ/L BUN 13 (7-17) mg/dL Creatinine 0.73 (0.52-1.04) mg/dL Estimated GFR > 60.0 ML/MIN Glucose 102 (74-106) mg/dL Calcium 8.6 (8.4-10.2) mg/dL Total Bilirubin 0.30 (0.2-1.3) mg/dL AST 19 (14-36) U/L ALT 17 (0-35) U/L Alkaline Phosphatase 74 (38-126) U/L Troponin I < 0.012 (0.000-0.034) ng/mL Serum Total Protein 7.2 (6.3-8.2) g/dL Albumin 3.8 (3.5-5.0) g/dL Lipase 132 (23-300) U/L Urine Color (YELLOW) Urine Appearance (CLEAR) Urine pH (5-6) Ur Specific [place] (1.005-1.025) Urine Protein (Negative) Urine Ketones (NEGATIVE) Urine Blood (0-5) [place]/ul Urine Nitrite (NEGATIVE) Urine Bilirubin (NEGATIVE) Urine Urobilinogen (0-1) mg/dL Ur Leukocyte Esterase (NEGATIVE) Urine WBC (Auto) (0-5) /HPF Urine RBC (Auto) (0-2) /HPF U Epithel Cells (Auto) (FEW) /HPF Urine Bacteria (Auto) (NEGATIVE) /HPF Urine Mucus (Auto) (NEGATIVE) /HPF Urine Culture Reflexed (NO) Urine Glucose (NEGATIVE) mg/dL Urine HCG, Qual (Negative) 05/30/20 05/30/20 Range/Units 12:53 12:53 WBC (4.0-10.5) K/mm3 RBC (4.1-5.4) M/mm3 Hgb (12.0-16.0) gm/dl Hct (35-47) % MCV (78-100) fl MCH (26-32) pg MCHC (32-36) g/dl RDW (11.5-14.0) % Plt Count (150-450) K/mm3 MPV (7.5-11.0) fl Gran % (36.0-66.0) % Eos # (Auto) (0-0.5) Absolute Lymphs (auto) (1.0-4.6) Absolute Monos (auto) (0.0-1.3) Lymphocytes % (24.0-44.0) % Monocytes % (0.0-12.0) % Eosinophils % (0.00-5.0) % Basophils % (0.0-0.4) % Absolute Granulocytes (1.4-6.9) Basophils # (0-0.4) Sodium (137-145) mmol/L Potassium (3.5-5.1) mmol/L Chloride (98-107) mmol/L Carbon Dioxide (22-30) mmol/L Anion Gap (5-15) MEQ/L BUN (7-17) mg/dL Creatinine (0.52-1.04) mg/dL Estimated GFR ML/MIN Glucose (74-106) mg/dL Calcium (8.4-10.2) mg/dL Total Bilirubin (0.2-1.3) mg/dL AST (14-36) U/L ALT (0-35) U/L Alkaline Phosphatase (38-126) U/L Troponin I (0.000-0.034) ng/mL Serum Total Protein (6.3-8.2) g/dL Albumin (3.5-5.0) g/dL Lipase (23-300) U/L Urine Color YELLOW (YELLOW) Urine Appearance CLOUDY (CLEAR) Urine pH 6.0 (5-6) Ur Specific [place] 1.023 (1.005-1.025) Urine Protein NEGATIVE (Negative) Urine Ketones NEGATIVE (NEGATIVE) Urine Blood SMALL (0-5) [place]/ul Urine Nitrite NEGATIVE (NEGATIVE) Urine Bilirubin NEGATIVE (NEGATIVE) Urine Urobilinogen NEGATIVE (0-1) mg/dL Ur Leukocyte Esterase LARGE (NEGATIVE) Urine WBC (Auto) 26-50 (0-5) /HPF Urine RBC (Auto) 11-15 (0-2) /HPF U Epithel Cells (Auto) FEW (FEW) /HPF Urine Bacteria (Auto) FEW (NEGATIVE) /HPF Urine Mucus (Auto) SLIGHT (NEGATIVE) /HPF Urine Culture Reflexed YES (NO) Urine Glucose NEGATIVE (NEGATIVE) mg/dL Urine HCG, Qual NEGATIVE (Negative) - Progress Progress: improved Progress Note: 05/30/20 13:18 We'll obtain basic labs, fluids, EKG, troponin, chest x-ray - I feel comfortable with one time negative troponin given symptoms have improved and started greater then 6 hours ago. - EKG shows no ST changes - my read. See full read below. - O2 saturations consistently greater than 95%. - CT chest/abdomen/pelvis - no other obvious lab abnormalities 05/30/20 14:47 No PE seen on CT scan. Patient has diverticulitis we will need to treat with Augmentin going home. No signs of perforation. Abdominal pain improved on abdominal reexam. Patient was found to have a right adnexal mass as well. She will need to follow-up with her wash and greaser for this. I did discuss the possibility of cancer with her. Also patient has a right middle lobe pulmonary nodule. She will need repeat CT scan in 6 to 12 months. See my follow-up information below that I did give her verbally and in writing. You have have mass in your right adenexal region/midline abdomen. You will need to see your wash and greaser for follow up of this. Return here for new or changing symptoms. See PCP for follow up of right middle lobe pulmonary nodule. You need follow up CT scan in 6-12 months. Plan of care was discussed with patient and all questions answered. The patient is agreeable to be discharged home and both verbal and printed discharge instructions were provided.The patient agreed to seek outpatient follow up as discussed. The patient was given strict instructions to return to the emergency department for worsening symptoms or any other emergent concerns. The patient verbalized understanding. Counseled pt/family regarding: lab results, diagnosis, need for follow-up, rad results - Departure Departure Disposition: Home Clinical Impression: Diverticulitis, Teratoma of pelvis, Pulmonary nodule Condition: Stable Critical Care Time: No Referrals: DOCTOR,NO FAMILY [NON-STAFF PHY W/O PRIVILEGES] - Instructions: Acute Abdomen (Belly Pain), Adult (DC) Additional Instructions: You have have mass in your right adenexal region/midline abdomen. You will need to see your wash and greaser for follow up of this. Return here for new or changing symptoms. See PCP for follow up of right middle lobe pulmonary nodule. You need follow up CT scan in 6-12 months. Prescriptions: Amox Tr/Potass Clav. 875 mg [Augmentin 875-125 Tablet] 875 mg PO BID 10 Days #20 tablet Amox Tr/Potass Clav. 875 mg [Augmentin 875-125 Tablet] 875 mg PO BID 10 Days #20 tablet
[2020-05-30 13:22] LABS: ALBUMIN 3.8 g/dL (3.5-5.0); ALKALINE PHOSPHATASE 74 U/L (38-126); ANION GAP 8.5 MEQ/L (5-15); BLOOD UREA NITROGEN 13 mg/dL (7-17); CHLORIDE 107 mmol/L (98-107); Calcium 8.6 mg/dL (8.4-10.2); Carbon Dioxide 26 mmol/L (22-30); Creatinine 1 0.73 mg/dL (0.52-1.04); EST GLOMERULAR FILTRATION RATE > 60.0 ML/MIN; Glucose 102 mg/dL (74-106); LIPASE 132 U/L (23-300); Potassium 3.8 mmol/L (3.5-5.1); SGOT/AST 19 U/L (14-36); SGPT/ALT 17 U/L (0-35); SODIUM 137 mmol/L (137-145); Total Protein 7.2 g/dL (6.3-8.2)
[2020-05-30 14:55] VITALS: BP 103/69; PULSE 92; O2SAT 97
--- NOTE | 2020-05-30 16:13 | XRAY ---
Indication: Left chest pain and short of breath 2 days. Multiple contiguous axial images obtained through the chest using 80 cc of Isovue-370 contrast. Comparison: None. Lungs inflated with minimal pulmonary emphysema and minimal bilateral dependent atelectasis. Right middle lobe demonstrates 4-5 mm peripheral noncalcified nodule on image 40, series 4). No infiltrate, consolidation, or effusion. Heart is not enlarged. Aorta is normal in course and caliber. No pathologic mediastinal/hilar lymphadenopathy. Bony thorax is intact. CT abdomen/pelvis reported separately. Impression: 1. Right middle lobe indeterminate micronodule, too small for PET/CT. Outside comparison studies recommended if available. If not, follow-up per Fleischner guidelines recommended. 2. Pulmonary emphysema. 3. Remaining CT chest with contrast exam is negative. Comment: Preliminary interpretation was made by [facility]. No critical discrepancy.
--- NOTE | 2020-05-30 16:17 | XRAY ---
Indication: Left abdomen pain 2 days. Multiple contiguous axial images obtained through the abdomen and pelvis using 80 cc of Isovue-370 contrast only. Comparison: None. CT chest reported separately. Stomach is distended with fluid/fluid. Noncontrasted stomach and bowel loops appear nonobstructed. Normal appendix. Mild diffuse scattered colonic diverticulosis and fecal debris. Pelvis demonstrates a 6.4 x 5.5 x 7.0 cm mass superior to the uterus demonstrating fat, soft tissue, and calcifications favoring teratoma. No free fluid/air. Gallbladder contracted without gallstones. Remaining liver, gallbladder, pancreas, spleen, adrenal glands, kidneys, ureters, bladder, uterus, and aorta appear unremarkable. No pathologic retroperitoneal lymphadenopathy. Osseous structures intact. Impression: 1. Pelvic teratoma as detailed. 2. Incidental diffuse fecal stasis and colonic diverticulosis. Comment: Preliminary interpretation was made by [facility]. No critical discrepancy.
== END 2020-05-30 14:56 | disposition home or self-care (01) ==
LOC: ED 12:32
DX: K57.32 Diverticulitis of large intestine without perforation or abscess without bleeding (principal); R07.9 Chest pain, unspecified; R10.9 Unspecified abdominal pain; R91.1 Solitary pulmonary nodule; R19.00 Intra-abdominal and pelvic swelling, mass and lump, unspecified site; D48.7 Neoplasm of uncertain behavior of other specified sites
CPT/HCPCS: 36000; 36415; 71260; 74177; 80053; 81001; 83690; 84484; 84703; 85025; 87077; 87086; 87186; 93005; 96360; 96374; 96375; 99284; J1885; J2405

== ENCOUNTER 2021-02-16 07:11 | Inpatient (IN) | payer BC ==
[2021-02-16] MEDS ORDERED: Lactated Ringers 1,000 ML IV ONE (07:25)
[2021-02-16] MEDS: Lactated Ringers 1,000 ML IV SCH ×4 (07:28→20:38)
[2021-02-16] MEDS ORDERED: Versed 2 MG/2 ML Injection ONE (08:00)
[2021-02-16] MEDS ORDERED: CEFAZOLIN 2 GM-D5W BAG** 2 GM/50 ML ML IV ONE (08:02)
[2021-02-16] MEDS ORDERED: Versed 2 MG/2 ML Injection IV ONE (08:06)
[2021-02-16] MEDS ORDERED: CEFAZOLIN 2 GM-D5W BAG** 2 GM/50 ML ML IV SCH (08:30)
[2021-02-16 08:50] LABS: ABO TYPING A; Antibody Screen NEGATIVE (NEGATIVE); RH TYPING POSITIVE
[2021-02-16] MEDS ORDERED: Zemuron 100 MG/10 ML ONE (09:33)
[2021-02-16] MEDS ORDERED: SUBLIMAZE 100 MCG/2 ML ONE (09:33)
[2021-02-16] MEDS ORDERED: Astramorph-Pf 5 MG/10 ML ONE (09:33)
[2021-02-16] MEDS ORDERED: DIPRIVAN 200 MG/20 ML IV ONE (09:33)
[2021-02-16] MEDS ORDERED: Zofran 4 MG/2 ML VIAL ONE (10:55)
[2021-02-16] MEDS ORDERED: Decadron 4 MG INJ ONE (10:55)
[2021-02-16] MEDS ORDERED: Marcaine 0.5%/Epinephrine 10 ML ONE (10:55)
[2021-02-16] MEDS ORDERED: BRIDION 200MG/2ML IV ONE (11:22)
[2021-02-16] MEDS ORDERED: Xopenex 1.25 MG/0.5 ML UD NEBULE IH SCH (11:45)
[2021-02-16] MEDS ORDERED: Sodium Chloride 3 ML UD NEBULES IH ONE (11:45)
[2021-02-16 11:46] LABS: Appearance CLEAR (CLEAR); Bilirubin NEGATIVE (NEGATIVE); Blood SMALL Ery/ul (0-5); Glucose NEGATIVE (NEGATIVE); Ketones NEGATIVE (NEGATIVE); Leukocyte Esterase NEGATIVE (NEGATIVE); Mucus SLIGHT /HPF (NEGATIVE); Nitrite NEGATIVE (NEGATIVE); Protein,Urine Dip NEGATIVE (Negative); Specific Gravity 1.015 (1.005-1.025); Urobilinogen NEGATIVE mg/dL (0-1)
[2021-02-16 11:47] LABS: Bacteria RARE /HPF (NEGATIVE); Epithelial Cells RARE /HPF (FEW); RBC 0-2 /HPF (0-2); WBC 0-2 /HPF (0-5)
[2021-02-16 12:47] LABS: Hematocrit 39.8 % (35-47); Hemoglobin 13.3 gm/dl (12.0-16.0); Mean Cell Volume 96.4 fl (78-100); Mean Corpuscular Hemoglobin 32.2 pg (26-32); Mean Corpuscular Hgb Concent. 33.4 g/dl (32-36); Mean Platelet Volume 10.3 fl (7.5-11.0); Platelet Count 326 K/mm3 (150-450); Red Blood Count 4.13 M/mm3 (4.1-5.4); Red Cell Distribution Width 13.4 % (11.5-14.0); White Blood Count 8.1 K/mm3 (4.0-10.5)
[2021-02-16] MEDS ORDERED: Zofran 4 MG/2 ML VIAL IV PRN ×2 (12:47→17:10)
[2021-02-16] MEDS: Reglan 10 MG/2 ML IV SCH ×2 (13:00→20:48)
[2021-02-16] MEDS: TORAdol 30 mg Injection IV PRN (13:00)
[2021-02-16] MEDS: Mylicon 80MG PO SCH ×2 (13:00→20:47)
[2021-02-16 13:06] LABS: ALBUMIN 3.8 g/dL (3.5-5.0); ALKALINE PHOSPHATASE 62 U/L (38-126); ANION GAP 11.6 MEQ/L (5-15); BILIRUBIN,TOTAL < 0.10 mg/dL (0.2-1.3); BLOOD UREA NITROGEN 17 mg/dL (7-17); CHLORIDE 106 mmol/L (98-107); Carbon Dioxide 23 mmol/L (22-30); EST GLOMERULAR FILTRATION RATE > 60.0 ML/MIN; Glucose 99 mg/dL (74-106); Potassium 3.9 mmol/L (3.5-5.1); SGOT/AST 22 U/L (14-36); SGPT/ALT 17 U/L (0-35); SODIUM 137 mmol/L (137-145); Total Protein 6.9 g/dL (6.3-8.2)
[2021-02-16] MEDS ORDERED: TYLENOL 325 MG PO PRN (13:30)
[2021-02-16] MEDS: CEFAZOLIN 2 GM-D5W BAG** 2 GM/50 ML ML IV SCH ×2 (16:44→23:32)
[2021-02-16] MEDS ORDERED: Hydromorphone 1 mg/ml Injection IV ONE ×2 (16:50→17:15)
[2021-02-16] MEDS ORDERED: DEMEROL 50 MG IV PRN (17:10)
[2021-02-16] MEDS ORDERED: CLARITIN 10 MG PO PRN (17:10)
[2021-02-16] MEDS ORDERED: Sodium Chloride 0.9% 10 ML FLUSH Syringe IJ PRN (17:10)
[2021-02-16] MEDS ORDERED: Nubain 10 MG/ML IV PRN (17:10)
[2021-02-16] MEDS ORDERED: BENADRYL 50 MG/ML IV PRN (17:10)
[2021-02-16] MEDS ORDERED: Narcan 0.4 MG/ML IV PRN (17:10)
[2021-02-16] MEDS: PERCOCET TABLET 5/325MG PO PRN ×2 (17:47→23:06)
[2021-02-16 18:54] LABS: Hematocrit 40.5 % (35-47); Hemoglobin 13.3 gm/dl (12.0-16.0); Mean Cell Volume 96.7 fl (78-100); Mean Corpuscular Hemoglobin 31.7 pg (26-32); Mean Corpuscular Hgb Concent. 32.8 g/dl (32-36); Mean Platelet Volume 9.5 fl (7.5-11.0); Platelet Count 317 K/mm3 (150-450); Red Blood Count 4.19 M/mm3 (4.1-5.4); Red Cell Distribution Width 13.1 % (11.5-14.0); White Blood Count 14.9 K/mm3 (4.0-10.5)
[2021-02-16] MEDS: MORPHINE SULFATE 2 MG INJ IV PRN (20:40)
[2021-02-16] MEDS: Colace 100 MG PO SCH (20:47)
[2021-02-17] MEDS: PERCOCET TABLET 5/325MG PO PRN ×5 (04:05→21:51)
[2021-02-17] MEDS: Lactated Ringers 1,000 ML IV SCH ×2 (05:13→13:59)
[2021-02-17 05:28] LABS: Hematocrit 37.6 % (35-47); Hemoglobin 12.4 gm/dl (12.0-16.0); Mean Cell Volume 97.7 fl (78-100); Mean Corpuscular Hemoglobin 32.2 pg (26-32); Mean Platelet Volume 9.7 fl (7.5-11.0); Platelet Count 333 K/mm3 (150-450); Red Blood Count 3.85 M/mm3 (4.1-5.4); Red Cell Distribution Width 13.1 % (11.5-14.0); White Blood Count 19.5 K/mm3 (4.0-10.5)
[2021-02-17] MEDS: Mylicon 80MG PO SCH ×3 (05:29→21:15)
[2021-02-17] MEDS: Reglan 10 MG/2 ML IV SCH ×3 (05:31→21:15)
[2021-02-17] MEDS: TORAdol 30 mg Injection IV PRN ×3 (05:31→20:03)
[2021-02-17 06:01] LABS: ALBUMIN 3.6 g/dL (3.5-5.0); ALKALINE PHOSPHATASE 62 U/L (38-126); ANION GAP 12.4 MEQ/L (5-15); BLOOD UREA NITROGEN 10 mg/dL (7-17); CHLORIDE 103 mmol/L (98-107); Calcium 8.6 mg/dL (8.4-10.2); Carbon Dioxide 25 mmol/L (22-30); Creatinine 1 0.57 mg/dL (0.52-1.04); EST GLOMERULAR FILTRATION RATE > 60.0 ML/MIN; Glucose 117 mg/dL (74-106); Potassium 4.4 mmol/L (3.5-5.1); SGOT/AST 27 U/L (14-36); SGPT/ALT 16 U/L (0-35); SODIUM 136 mmol/L (137-145); Total Protein 6.7 g/dL (6.3-8.2)
[2021-02-17] MEDS: MORPHINE SULFATE 2 MG INJ IV PRN (07:19)
--- NOTE | 2021-02-17 08:07 | PCM.NOTE ---
Date and Time: 02/17/21801 Subjective Assessment: POD 1 PT RESTING IN BED AND DOING WELL AMBULATING AND TOLERATING DIET. DENIES FLATUS AT THIS TIME VSS AFEBRILE ABD; SOFT INCISION C/D/INTACT EXT; NO CLUBBING CYANOSIS OR EDEMA WBC; 19 HGB STABLE A/S SP LAPAROTOMY SUPRACERVICAL HYSTERECTOMY RSO LEFT SALPINGECTOMY SECONDARY TO CHRONIC PELVIC PAIN AND LARGE DERMOID LEUKOCYTOSIS WILL ENCOURAGE AMBULATION WILL REPEAT CBC AT NOON TODAY WILL ANTICIPATE DISCHARGE IF WBC IMPROVING OBJECTIVE DATA Vital Signs: Vital Signs - 24 hr Temp Pulse Resp BP Pulse Ox 02/17/21 04:00 97.6 F 81 17 115/67 98 02/17/21 00:00 97.6 F 67 18 116/58 97 02/16/21 19:36 97.9 F 80 19 118/69 98 02/16/21 14:45 79 22 103/59 98 02/16/21 13:30 80 20 112/57 98 02/16/21 12:45 97.9 F 80 18 102/67 98 02/16/21 12:15 97.9 F 80 20 106/69 96 02/16/21 12:00 98.0 F 83 20 110/63 95 02/16/21 11:42 81 16 95 02/16/21 08:16 98 F 80 18 126/81 100 Pain Assessment - Last Documented Pain Intensity 9 Pain Scale Used 0-10 Pain Scale Intake and Output: Intake & Output 02/14/21 02/15/21 02/16/21 02/17/21 11:59 11:59 11:59 11:59 Intake Total 1940 Output Total 2350 Balance -410 Weight 74.7 kg 74.7 kg Lab Results: Lab Results-Last 24 Hours 02/16/21 02/16/21 02/16/21 Range/Units 07:47 07:50 07:50 WBC 8.1 (4.0-10.5) K/mm3 RBC 4.13 (4.1-5.4) M/mm3 Hgb 13.3 (12.0-16.0) gm/dl Hct 39.8 (35-47) % MCV 96.4 (78-100) fl MCH 32.2 H (26-32) pg MCHC 33.4 (32-36) g/dl RDW 13.4 (11.5-14.0) % Plt Count 326 (150-450) K/mm3 MPV 10.3 (7.5-11.0) fl Sodium 137 (137-145) mmol/L Potassium 3.9 (3.5-5.1) mmol/L Chloride 106 (98-107) mmol/L Carbon Dioxide 23 (22-30) mmol/L Anion Gap 11.6 (5-15) MEQ/L BUN 17 (7-17) mg/dL Creatinine 0.80 (0.52-1.04) mg/dL Estimated GFR > 60.0 ML/MIN Glucose 99 (74-106) mg/dL Calcium 9.0 (8.4-10.2) mg/dL Total Bilirubin < 0.10 L (0.2-1.3) mg/dL AST 22 (14-36) U/L ALT 17 (0-35) U/L Alkaline Phosphatase 62 (38-126) U/L Serum Total Protein 6.9 (6.3-8.2) g/dL Albumin 3.8 (3.5-5.0) g/dL Urine Color (YELLOW) Urine Appearance (CLEAR) Urine pH (5-6) Ur Specific [place] (1.005-1.025) Urine Protein (Negative) Urine Ketones (NEGATIVE) Urine Blood (0-5) [place]/ul Urine Nitrite (NEGATIVE) Urine Bilirubin (NEGATIVE) Urine Urobilinogen (0-1) mg/dL Ur Leukocyte Esterase (NEGATIVE) Urine WBC (Auto) (0-5) /HPF Urine RBC (Auto) (0-2) /HPF U Epithel Cells (Auto) (FEW) /HPF Urine Bacteria (Auto) (NEGATIVE) /HPF Urine Mucus (Auto) (NEGATIVE) /HPF Urine Glucose (NEGATIVE) mg/dL ABO Group A Rh Factor POSITIVE Antibody Screen NEGATIVE (NEGATIVE) 02/16/21 02/16/21 02/17/21 Range/Units 10:00 18:51 04:55 WBC 14.9 H 19.5 H (4.0-10.5) K/mm3 RBC 4.19 3.85 L (4.1-5.4) M/mm3 Hgb 13.3 12.4 (12.0-16.0) gm/dl Hct 40.5 37.6 (35-47) % MCV 96.7 97.7 (78-100) fl MCH 31.7 32.2 H (26-32) pg MCHC 32.8 33.0 (32-36) g/dl RDW 13.1 13.1 (11.5-14.0) % Plt Count 317 333 (150-450) K/mm3 MPV 9.5 9.7 (7.5-11.0) fl Sodium (137-145) mmol/L Potassium (3.5-5.1) mmol/L Chloride (98-107) mmol/L Carbon Dioxide (22-30) mmol/L Anion Gap (5-15) MEQ/L BUN (7-17) mg/dL Creatinine (0.52-1.04) mg/dL Estimated GFR ML/MIN Glucose (74-106) mg/dL Calcium (8.4-10.2) mg/dL Total Bilirubin (0.2-1.3) mg/dL AST (14-36) U/L ALT (0-35) U/L Alkaline Phosphatase (38-126) U/L Serum Total Protein (6.3-8.2) g/dL Albumin (3.5-5.0) g/dL Urine Color YELLOW (YELLOW) Urine Appearance CLEAR (CLEAR) Urine pH 5.0 (5-6) Ur Specific [place] 1.015 (1.005-1.025) Urine Protein NEGATIVE (Negative) Urine Ketones NEGATIVE (NEGATIVE) Urine Blood SMALL (0-5) [place]/ul Urine Nitrite NEGATIVE (NEGATIVE) Urine Bilirubin NEGATIVE (NEGATIVE) Urine Urobilinogen NEGATIVE (0-1) mg/dL Ur Leukocyte Esterase NEGATIVE (NEGATIVE) Urine WBC (Auto) 0-2 (0-5) /HPF Urine RBC (Auto) 0-2 (0-2) /HPF U Epithel Cells (Auto) RARE (FEW) /HPF Urine Bacteria (Auto) RARE (NEGATIVE) /HPF Urine Mucus (Auto) SLIGHT (NEGATIVE) /HPF Urine Glucose NEGATIVE (NEGATIVE) mg/dL ABO Group Rh Factor Antibody Screen (NEGATIVE) 02/17/21 Range/Units 04:55 WBC (4.0-10.5) K/mm3 RBC (4.1-5.4) M/mm3 Hgb (12.0-16.0) gm/dl Hct (35-47) % MCV (78-100) fl MCH (26-32) pg MCHC (32-36) g/dl RDW (11.5-14.0) % Plt Count (150-450) K/mm3 MPV (7.5-11.0) fl Sodium 136 L (137-145) mmol/L Potassium 4.4 (3.5-5.1) mmol/L Chloride 103 (98-107) mmol/L Carbon Dioxide 25 (22-30) mmol/L Anion Gap 12.4 (5-15) MEQ/L BUN 10 (7-17) mg/dL Creatinine 0.57 (0.52-1.04) mg/dL Estimated GFR > 60.0 ML/MIN Glucose 117 H (74-106) mg/dL Calcium 8.6 (8.4-10.2) mg/dL Total Bilirubin 0.40 (0.2-1.3) mg/dL AST 27 (14-36) U/L ALT 16 (0-35) U/L Alkaline Phosphatase 62 (38-126) U/L Serum Total Protein 6.7 (6.3-8.2) g/dL Albumin 3.6 (3.5-5.0) g/dL Urine Color (YELLOW) Urine Appearance (CLEAR) Urine pH (5-6) Ur Specific [place] (1.005-1.025) Urine Protein (Negative) Urine Ketones (NEGATIVE) Urine Blood (0-5) [place]/ul Urine Nitrite (NEGATIVE) Urine Bilirubin (NEGATIVE) Urine Urobilinogen (0-1) mg/dL Ur Leukocyte Esterase (NEGATIVE) Urine WBC (Auto) (0-5) /HPF Urine RBC (Auto) (0-2) /HPF U Epithel Cells (Auto) (FEW) /HPF Urine Bacteria (Auto) (NEGATIVE) /HPF Urine Mucus (Auto) (NEGATIVE) /HPF Urine Glucose (NEGATIVE) mg/dL ABO Group Rh Factor Antibody Screen (NEGATIVE) Assessment/Plan (1) S/P abdominal supracervical subtotal hysterectomy Current Visit: Yes Status: Acute Code(s): Z90.711 - ACQUIRED ABSENCE OF UTERUS WITH REMAINING CERVICAL STUMP (2) History of right salpingo-oophorectomy Current Visit: Yes Status: Acute Code(s): Z90.79 - ACQUIRED ABSENCE OF OTHER GENITAL ORGAN(S); Z90.721 - ACQUIRED ABSENCE OF OVARIES, UNILATERAL
[2021-02-17] MEDS: Colace 100 MG PO SCH ×2 (08:09→21:14)
[2021-02-17] MEDS: ENOXAPARIN SODIUM SQ SCH (08:09)
--- NOTE | 2021-02-17 08:12 | PCM.DS ---
Discharge Summary Date of Admission: 02/16/21 07:11 Admitting Physician: DANIEL LARSON DO Primary Care Provider: NO FAMILY DOCTOR Allergies Allergies No Known Drug Allergies Allergy (Verified 02/16/21 07:22) Hospital Summary - Hospital Course Hospital Course: pt admitted on february 16 for undergoing laparotomy supracervical hysterectomy right salpingoophorectomy and left salpingectomy secondary to suspected large right ovarian dermoid cyst. pt underwent procedure well without complication however on pod 1 was noted having elevated wbc to 19 thousand. pt was then started on zosyn on pod 1 and at this time pt stable for discharge with a stable wbc at 10. pt able to ambulate and tolerate diet as well have having a bm. sent rx for norco 30 tabs to her pharmacy and was advised to fu in office in 2 wks. all questions answered to her satisfaction. - Vitals & Intake/Output Vital Signs: Vital Signs Temperature 97.8 F 02/17/21 08:00 Pulse Rate 67 02/17/21 08:00 Respiratory Rate 18 02/17/21 08:00 Blood Pressure 111/68 02/17/21 08:00 O2 Sat by Pulse Oximetry 94 L 02/17/21 08:00 Intake & Output: Intake & Output 02/14/21 02/15/21 02/16/21 02/17/21 11:59 11:59 11:59 11:59 Intake Total 1940 Output Total 2350 Balance -410 Weight 74.7 kg 74.7 kg - Lab Result Diagrams: 02/18/21 04:35 02/17/21 04:55 Lab Results-Last 24 Hrs: Lab Results-Last 24 Hours 02/16/21 02/16/21 02/16/21 Range/Units 07:47 07:50 07:50 WBC 8.1 (4.0-10.5) K/mm3 RBC 4.13 (4.1-5.4) M/mm3 Hgb 13.3 (12.0-16.0) gm/dl Hct 39.8 (35-47) % MCV 96.4 (78-100) fl MCH 32.2 H (26-32) pg MCHC 33.4 (32-36) g/dl RDW 13.4 (11.5-14.0) % Plt Count 326 (150-450) K/mm3 MPV 10.3 (7.5-11.0) fl Sodium 137 (137-145) mmol/L Potassium 3.9 (3.5-5.1) mmol/L Chloride 106 (98-107) mmol/L Carbon Dioxide 23 (22-30) mmol/L Anion Gap 11.6 (5-15) MEQ/L BUN 17 (7-17) mg/dL Creatinine 0.80 (0.52-1.04) mg/dL Estimated GFR > 60.0 ML/MIN Glucose 99 (74-106) mg/dL Calcium 9.0 (8.4-10.2) mg/dL Total Bilirubin < 0.10 L (0.2-1.3) mg/dL AST 22 (14-36) U/L ALT 17 (0-35) U/L Alkaline Phosphatase 62 (38-126) U/L Serum Total Protein 6.9 (6.3-8.2) g/dL Albumin 3.8 (3.5-5.0) g/dL Urine Color (YELLOW) Urine Appearance (CLEAR) Urine pH (5-6) Ur Specific Chavies (1.005-1.025) Urine Protein (Negative) Urine Ketones (NEGATIVE) Urine Blood (0-5) Malcom/ul Urine Nitrite (NEGATIVE) Urine Bilirubin (NEGATIVE) Urine Urobilinogen (0-1) mg/dL Ur Leukocyte Esterase (NEGATIVE) Urine WBC (Auto) (0-5) /HPF Urine RBC (Auto) (0-2) /HPF U Epithel Cells (Auto) (FEW) /HPF Urine Bacteria (Auto) (NEGATIVE) /HPF Urine Mucus (Auto) (NEGATIVE) /HPF Urine Glucose (NEGATIVE) mg/dL ABO Group A Rh Factor POSITIVE Antibody Screen NEGATIVE (NEGATIVE) 02/16/21 02/16/21 02/17/21 Range/Units 10:00 18:51 04:55 WBC 14.9 H 19.5 H (4.0-10.5) K/mm3 RBC 4.19 3.85 L (4.1-5.4) M/mm3 Hgb 13.3 12.4 (12.0-16.0) gm/dl Hct 40.5 37.6 (35-47) % MCV 96.7 97.7 (78-100) fl MCH 31.7 32.2 H (26-32) pg MCHC 32.8 33.0 (32-36) g/dl RDW 13.1 13.1 (11.5-14.0) % Plt Count 317 333 (150-450) K/mm3 MPV 9.5 9.7 (7.5-11.0) fl Sodium (137-145) mmol/L Potassium (3.5-5.1) mmol/L Chloride (98-107) mmol/L Carbon Dioxide (22-30) mmol/L Anion Gap (5-15) MEQ/L BUN (7-17) mg/dL Creatinine (0.52-1.04) mg/dL Estimated GFR ML/MIN Glucose (74-106) mg/dL Calcium (8.4-10.2) mg/dL Total Bilirubin (0.2-1.3) mg/dL AST (14-36) U/L ALT (0-35) U/L Alkaline Phosphatase (38-126) U/L Serum Total Protein (6.3-8.2) g/dL Albumin (3.5-5.0) g/dL Urine Color YELLOW (YELLOW) Urine Appearance CLEAR (CLEAR) Urine pH 5.0 (5-6) Ur Specific Chavies 1.015 (1.005-1.025) Urine Protein NEGATIVE (Negative) Urine Ketones NEGATIVE (NEGATIVE) Urine Blood SMALL (0-5) Malcom/ul Urine Nitrite NEGATIVE (NEGATIVE) Urine Bilirubin NEGATIVE (NEGATIVE) Urine Urobilinogen NEGATIVE (0-1) mg/dL Ur Leukocyte Esterase NEGATIVE (NEGATIVE) Urine WBC (Auto) 0-2 (0-5) /HPF Urine RBC (Auto) 0-2 (0-2) /HPF U Epithel Cells (Auto) RARE (FEW) /HPF Urine Bacteria (Auto) RARE (NEGATIVE) /HPF Urine Mucus (Auto) SLIGHT (NEGATIVE) /HPF Urine Glucose NEGATIVE (NEGATIVE) mg/dL ABO Group Rh Factor Antibody Screen (NEGATIVE) 02/17/21 Range/Units 04:55 WBC (4.0-10.5) K/mm3 RBC (4.1-5.4) M/mm3 Hgb (12.0-16.0) gm/dl Hct (35-47) % MCV (78-100) fl MCH (26-32) pg MCHC (32-36) g/dl RDW (11.5-14.0) % Plt Count (150-450) K/mm3 MPV (7.5-11.0) fl Sodium 136 L (137-145) mmol/L Potassium 4.4 (3.5-5.1) mmol/L Chloride 103 (98-107) mmol/L Carbon Dioxide 25 (22-30) mmol/L Anion Gap 12.4 (5-15) MEQ/L BUN 10 (7-17) mg/dL Creatinine 0.57 (0.52-1.04) mg/dL Estimated GFR > 60.0 ML/MIN Glucose 117 H (74-106) mg/dL Calcium 8.6 (8.4-10.2) mg/dL Total Bilirubin 0.40 (0.2-1.3) mg/dL AST 27 (14-36) U/L ALT 16 (0-35) U/L Alkaline Phosphatase 62 (38-126) U/L Serum Total Protein 6.7 (6.3-8.2) g/dL Albumin 3.6 (3.5-5.0) g/dL Urine Color (YELLOW) Urine Appearance (CLEAR) Urine pH (5-6) Ur Specific Chavies (1.005-1.025) Urine Protein (Negative) Urine Ketones (NEGATIVE) Urine Blood (0-5) Malcom/ul Urine Nitrite (NEGATIVE) Urine Bilirubin (NEGATIVE) Urine Urobilinogen (0-1) mg/dL Ur Leukocyte Esterase (NEGATIVE) Urine WBC (Auto) (0-5) /HPF Urine RBC (Auto) (0-2) /HPF U Epithel Cells (Auto) (FEW) /HPF Urine Bacteria (Auto) (NEGATIVE) /HPF Urine Mucus (Auto) (NEGATIVE) /HPF Urine Glucose (NEGATIVE) mg/dL ABO Group Rh Factor Antibody Screen (NEGATIVE) - Procedures and Test Procedures and Tests throughout Hospitalization: Therapy Orders & Screens 02/16/21 11:45 Respiratory Therapy Assessment DAILY Comment: Diagnosis: abd pain 02/16/21 11:54 Smoking Cessation Education ONCE Comment: Diagnosis: abd pain Smoking Status: Never smoker How long have you smoked: years Have you smoked in the past 12 months: Yes Approximately how many cigarettes per day: 20 Do you dip or chew tobacco: No 02/16/21 12:14 Incentive Spirometry UD Comment: Diagnosis: abd pain Final Diagnosis/Problem List - Final Discharge Diagnosis/Problem (1) S/P abdominal supracervical subtotal hysterectomy Current Visit: Yes Status: Acute Code(s): Z90.711 - ACQUIRED ABSENCE OF UTERUS WITH REMAINING CERVICAL STUMP (2) History of right salpingo-oophorectomy Current Visit: Yes Status: Acute Code(s): Z90.79 - ACQUIRED ABSENCE OF OTHER GENITAL ORGAN(S); Z90.721 - ACQUIRED ABSENCE OF OVARIES, UNILATERAL - Discharge Disposition: Home, Self-Care Condition: Good Prescriptions: New Hydrocodone/Acetaminophen [Hydrocodone-Acetamin 5-325 mg] 1 each PO Q6HPRN PRN #30 tablet MDD 4 PRN Reason: Pain No Action Acetaminophen 325 mg [Tylenol 325 mg] 650 mg PO STAT Instructions: Hysterectomy (DC) Follow up with: DANIEL LARSON DO [ACTIVE STAFF] - 03/03/21 9:30 am (nothing per vagina for 6 wks no heavy lifting may drive after 1 wk)
--- NOTE | 2021-02-17 08:27 | OP ---
SURGERY DATE/TIME: 02/16/2021 0938 PREOPERATIVE DIAGNOSES: 1) Chronic pelvic pain. 2) Large dermoid cyst. POSTOPERATIVE DIAGNOSES: 1) Chronic pelvic pain. 2) Right ovarian dermoid cyst. PROCEDURES: 1) Laparotomy supracervical hysterectomy. 2) Right salpingo-oophorectomy. 3) Left salpingectomy. SURGEON: Britton Bray D.O. WARDROBE SPECIALIST: Cordell Meza surgical services tech. ANESTHESIA: General and spinal. ESTIMATED BLOOD LOSS: 50 cc. COMPLICATIONS: None. INDICATIONS: The risks, benefits, indications and alternatives of the procedure were reviewed with the patient prior to procedure. The patient understood the risk of infection, bleeding, bowel injury, bladder injury, ureteral injury, incisional hernia, pelvic infection, thromboembolic disorder associated with the surgery and desires to have this procedure as a possible means to alleviate her current medical condition. DESCRIPTION OF PROCEDURE AND FINDINGS: At this point the patient is taken to the operating room, given general sedation where she was placed in the supine position given general anesthesia, prepared and draped in the usual sterile fashion. A Pfannenstiel incision was made approximately 2 cm above the symphysis pubis and extended sharply to the rectus fascia. The fascia was then incised bilaterally with curved Bro scissors and the muscle of the anterior abdominal wall in the midline by sharp and blunt dissection. The peritoneum was then grasped between two pickups elevated and entered sharply with Metzenbaum scissors. The pelvis is then examined and was noted to have a normal sized uterus with a right 7 x 7 dermoid-appearing cyst. From this point O'Roger-O'Cabrera retractor was placed into the incision and the bowel packed away with moist laparotomy sponges. From this point the right adnexa was then elevated, two Jeannette clamps were placed over the infundibulopelvic ligament and excision of the right adnexa taken place including the fallopian tube and the entire ovary and it was done so without complications. Hemostasis was obtained where it was suture ligated with 0 Vicryl suture. From this point the uterus was elevated with a tenaculum and at this point the left utero-ovarian ligament was clamped, coagulated and cut and taken down to the round ligament towards the uterine vessels to the bladder reflection where then at this point the uterine artery was skeletonized on its left side and the bladder was gently dissected off the lower uterine segment and the cervix with a sponge stick. After skeletonization of the uterine artery it was clamped, coagulated and cut in two contiguous regions and hemostasis was obtained. From this point the LigaSure was placed on the right cut portion of the infundibulopelvic ligament and over the round ligament where it was clamped, coagulated and cut taken down to the uterine vasculature on the right side. The uterine arteries were skeletonized on its side and the LigaSure was used and placed on two contiguous regions clamped, coagulated and cut. The bladder was dissected off the lower uterine segment on its side with a sponge stick. From this point the uterus is then amputated with cautery from its cervical stump region and was done so without complication and the cervical stump was subsequently closed with continuous 0 Vicryl suture and hemostasis obtained with a two layer closure. From this point the left fallopian tube was lifted and LigaSure was placed on the mesosalpinx where it was clamped, coagulated and cut and excised. Good hemostasis was obtained. From this point the pelvis was irrigated copiously with warm normal saline. The left ovary appeared to be within normal limits and was not removed. All lap, sponge, needle, instruments were removed from the patient's abdomen. From this point the fascia was closed with 0 Vicryl suture and hemostasis was obtained. The muscle and peritoneum were closed with interrupted 2-0 chromic suture and the skin was closed with absorbable hilary called INSORB. Sponge, lap, needle and instrument counts were correct x2. The patient was then taken to the recovery room in stable condition.
[2021-02-17] MEDS ORDERED: HOLD NARCOTIC ANALGESICS AND SEDATIVES X24 HR MC SCH (10:00)
[2021-02-17 12:35] LABS: Absolute Neutrophil Ct (ANC) 14.65 (1.4-6.9); BASOPHIL % 0.1 % (0.0-0.4); Basophil (Absolute #) 0.01 (0-0.4); Eosinophil % 0.2 % (0.00-5.0); Eosinophil (Absolute #) 0.03 (0-0.5); Hemoglobin 11.3 gm/dl (12.0-16.0); Lymphocyte (Absolute #) 2.23 (1.0-4.6); Mean Corpuscular Hemoglobin 31.7 pg (26-32); Mean Corpuscular Hgb Concent. 32.3 g/dl (32-36); Mean Platelet Volume 9.6 fl (7.5-11.0); Monocyte (Absolute #) 1.62 (0.0-1.3); Monocytes % 8.7 % (0.0-12.0); Platelet Count 305 K/mm3 (150-450); Red Blood Count 3.57 M/mm3 (4.1-5.4); Red Cell Distribution Width 13.2 % (11.5-14.0); White Blood Count 18.5 K/mm3 (4.0-10.5)
[2021-02-17] MEDS: Zosyn 3.375 GM Vial 3.375 GM in Sodium Chloride 100ML MINI-BAG PLUS 100 ML IV SCH ×2 (13:59→21:14)
[2021-02-17 15:14] LABS: Slide Review 1 YES
[2021-02-18] MEDS: TORAdol 30 mg Injection IV PRN (01:58)
[2021-02-18] MEDS: PERCOCET TABLET 5/325MG PO PRN ×4 (01:59→14:07)
[2021-02-18] MEDS: Zosyn 3.375 GM Vial 3.375 GM in Sodium Chloride 100ML MINI-BAG PLUS 100 ML IV SCH ×3 (02:05→14:18)
[2021-02-18] MEDS: Lactated Ringers 1,000 ML IV SCH (02:05)
[2021-02-18 04:59] LABS: Absolute Neutrophil Ct (ANC) 6.32 (1.4-6.9); BASOPHIL % 0.1 % (0.0-0.4); Basophil (Absolute #) 0.01 (0-0.4); Eosinophil % 0.8 % (0.00-5.0); Eosinophil (Absolute #) 0.09 (0-0.5); Hematocrit 33.4 % (35-47); Hemoglobin 10.9 gm/dl (12.0-16.0); Mean Cell Volume 98.2 fl (78-100); Mean Corpuscular Hemoglobin 32.1 pg (26-32); Mean Corpuscular Hgb Concent. 32.6 g/dl (32-36); Mean Platelet Volume 9.9 fl (7.5-11.0); Monocyte (Absolute #) 0.94 (0.0-1.3); Monocytes % 8.8 % (0.0-12.0); Neutrophil % 59.3 % (36.0-66.0); Platelet Count 295 K/mm3 (150-450); Red Cell Distribution Width 13.3 % (11.5-14.0); White Blood Count 10.7 K/mm3 (4.0-10.5)
[2021-02-18] MEDS: Reglan 10 MG/2 ML IV SCH ×2 (06:17→14:07)
[2021-02-18] MEDS: Mylicon 80MG PO SCH ×2 (06:17→14:07)
[2021-02-18] MEDS: ENOXAPARIN SODIUM SQ SCH (07:15)
[2021-02-18] MEDS: Colace 100 MG PO SCH (08:14)
--- NOTE | 2021-02-18 09:11 | PCM.NOTE ---
Date and Time: 02/18/21908 Subjective Assessment: pod 2 pt resting in bed able to ambulate and tolerate diet. states having a bm already. vss afebrile abd; soft incision c/d/intact ext; no clubbing cyanosis or edema wbc; 10 a/p sp laparotomy supracervical hysterectomy rso left salpingectomy for large dermoid cyst wbc much improved will dc home today should fu in office in 2 wks OBJECTIVE DATA Vital Signs: Vital Signs - 24 hr Temp Pulse Resp BP Pulse Ox 02/18/21 08:00 97.6 F 62 18 125/86 95 02/18/21 03:45 97.7 F 75 18 141/75 97 02/17/21 23:35 97.6 F 75 18 112/71 96 02/17/21 19:44 97.7 F 88 18 118/80 98 02/17/21 16:00 97.5 F 97 H 18 124/67 98 02/17/21 12:00 97.5 F 77 18 116/68 97 Pain Assessment - Last Documented Pain Intensity 3 Pain Scale Used 0-10 Pain Scale Intake and Output: Intake & Output 02/15/21 02/16/21 02/17/21 02/18/21 11:59 11:59 11:59 11:59 Intake Total 2180 3005 Output Total 2650 1650 Balance -470 1355 Weight 74.7 kg 74.7 kg Lab Results: Lab Results-Last 24 Hours 02/17/21 02/18/21 Range/Units 12:20 04:35 WBC 18.5 H 10.7 H (4.0-10.5) K/mm3 RBC 3.57 L 3.40 L (4.1-5.4) M/mm3 Hgb 11.3 L 10.9 L (12.0-16.0) gm/dl Hct 35.0 33.4 L (35-47) % MCV 98.0 98.2 (78-100) fl MCH 31.7 32.1 H (26-32) pg MCHC 32.3 32.6 (32-36) g/dl RDW 13.2 13.3 (11.5-14.0) % Plt Count 305 295 (150-450) K/mm3 MPV 9.6 9.9 (7.5-11.0) fl Gran % 79.0 H 59.3 (36.0-66.0) % Eos # (Auto) 0.03 0.09 (0-0.5) Absolute Lymphs (auto) 2.23 3.30 (1.0-4.6) Absolute Monos (auto) 1.62 H 0.94 (0.0-1.3) Lymphocytes % 12.0 L 31.0 (24.0-44.0) % Monocytes % 8.7 8.8 (0.0-12.0) % Eosinophils % 0.2 0.8 (0.00-5.0) % Basophils % 0.1 0.1 (0.0-0.4) % Absolute Granulocytes 14.65 H 6.32 (1.4-6.9) Basophils # 0.01 0.01 (0-0.4) Slides for Path Review YES Multi-Disciplinary Progress Notes: Multi-Disciplinary Progress Notes 02/17/21 10:56 Case Management Note by Kanchan Henson S/W PHARMACY TO SEE WHAT RX AT TX WILL COST. RAMA REPORTED THEY DID NOT HAVE HER CURRENT INSURANCE INFORMATION ON FILE AND WITHOUT COVERAGE IT WOULD BE 31.24. NO GOOD RX COUPONS AVAILABLE FOR THIS MED. S/W PATIENT SHE WAS INSTRUCTED TO GET THEM HER NEW INSURANCE INFORMATION AND OF THE COST. PATIENT EDUCATED THAT IF MED STILL TOO EXPENSIVE AFTER INSURANCE SHE COULD REQUEST TO ONLY FILL A PORTION OF THE RX UNTIL SHE GETS MONEY AGAIN AT THE BEGINNING OF THE MONTH- SHE VERIFIED UNDERSTANDING Initialized on 02/17/21 10:56 - END OF NOTE Assessment/Plan (1) S/P abdominal supracervical subtotal hysterectomy Current Visit: Yes Status: Acute Code(s): Z90.711 - ACQUIRED ABSENCE OF UTERUS WITH REMAINING CERVICAL STUMP (2) History of right salpingo-oophorectomy Current Visit: Yes Status: Acute Code(s): Z90.79 - ACQUIRED ABSENCE OF OTHER GENITAL ORGAN(S); Z90.721 - ACQUIRED ABSENCE OF OVARIES, UNILATERAL
--- NOTE | 2021-02-18 09:15 | PCM.DCORD ---
- Discharge Disposition: Home, Self-Care Condition: Good Prescriptions: New Hydrocodone/Acetaminophen [Hydrocodone-Acetamin 5-325 mg] 1 each PO Q6HPRN PRN #30 tablet MDD 4 PRN Reason: Pain No Action Acetaminophen 325 mg [Tylenol 325 mg] 650 mg PO STAT Instructions: Hysterectomy (DC) Follow up with: DANIEL LARSON DO [ACTIVE STAFF] - 03/03/21 9:30 am (nothing per vagina for 6 wks no heavy lifting may drive after 1 wk)
[2021-02-18 12:40] VITALS: BP 120/82; PULSE 81; O2SAT 97
== END 2021-02-18 15:54 | disposition home or self-care (01) | DRG 743 ==
LOC: UNDOADMIN 07:11 → MED SURG 07:11 → EDSTATUS 14:04
PROVIDERS: ADMIT Obstetrics & Gynecology; ATTEND Obstetrics & Gynecology
PROC: 0UT94ZL Resection of Uterus, Supracervical, Percutaneous Endoscopic Approach (ICD-10-PCS; principal; 2021-02-16)
PROC: 0UT04ZZ Resection of Right Ovary, Percutaneous Endoscopic Approach (ICD-10-PCS; 2021-02-16)
PROC: 0UT74ZZ Resection of Bilateral Fallopian Tubes, Percutaneous Endoscopic Approach (ICD-10-PCS; 2021-02-16)
DX: N80.0 Endometriosis of uterus (principal); D27.0 Benign neoplasm of right ovary; R10.2 Pelvic and perineal pain
CPT/HCPCS: 36415; 58542; 62322; 64488; 76937; 76942; 80053; 81001; 84703; 85025; 85027; 86850; 86900; 86901; 87086; 88302; 88307; 94640; J0690; J1100; J1170; J1650; J1885; J2250; J2270; J2274; J2405; J2704; J3010; A9270-GY

== ENCOUNTER 2024-02-28 09:52 | Emergency (ER) | payer BC, OTHER ==
--- NOTE | 2024-02-28 09:55 | ERPHSYRPT ---
- History of Present Illness Time Seen by Provider: 02/28/24 09:54 Source: patient, family Exam Limitations: no limitations Physician History: This is a 48-year-old white female patient who does not have a primary care provider, is not on any medications and has no known drug allergies and presents with sore throat and chest congestion has been present for approximately 2 days. She has associated upper cervical chain adenopathy that is tender as well. Patient was sent to us from [facility]. Patient has longstanding tobacco use by smoking cigarettes. She consumes vodka nearly daily. Patient has a history of asthma and anxiety. Patient does not have shortness of breath or cough. Her room air oxygen saturation level is 98 to 99%. Timing/Duration: gradual onset Severity: moderate ENT Location: throat Prearrival Treatment: over the counter meds Modifying Factors: Improves With: nothing Associated Symptoms: swollen glands (Bilateral submandibular and upper anterior cervical chain), sore throat Allergies/Adverse Reactions: No Known Drug Allergies Allergy (Verified 02/16/21 07:22) Hx Influenza Vaccination/Date Given: No Hx Pneumococcal Vaccination/Date Given: No Travel Risk - International Travel Have you traveled outside of the country in past 3 weeks: No - Emerging Infectious Disease Are you exhibiting symptoms associated with any current EIDs: Yes - Review of Systems Constitutional: No Symptoms Eyes: No Symptoms Ears, Nose, & Throat: Throat Pain, Throat Swelling, Painful Swallowing Respiratory: No Symptoms Cardiac: No Symptoms Abdominal/Gastrointestinal: No Symptoms Genitourinary Symptoms: No Symptoms Musculoskeletal: No Symptoms Skin: No Symptoms Neurological: No Symptoms Psychological: No Symptoms Endocrine: No Symptoms Hematologic/Lymphatic: Adenopathy (Bilateral submandibular and bilateral upper anterior cervical chain) Immunological/Allergic: No Symptoms All Other Systems: Reviewed and Negative - Past Medical History Pertinent Past Medical History: No Neurological History: No Pertinent History ENT History: No Pertinent History Cardiac History: No Pertinent History Respiratory History: Asthma Endocrine Medical History: No Pertinent History Musculoskeletal History: Arthritis GI Medical History: No Pertinent History History: No Pertinent History Psycho-Social History: Anxiety Female Reproductive Disorders: No Pertinent History - Past Surgical History Past Surgical History: Yes Neuro Surgical History: No Pertinent History Cardiac: No Pertinent History Respiratory: No Pertinent History Gastrointestinal: No Pertinent History Genitourinary: No Pertinent History Musculoskeletal: No Pertinent History Female Surgical History: Tubal Ligation, Other Other Surgical History: uterine ablation , dental surgery at age 19 - Social History Smoking Status: Former smoker How long have you smoked: years Exposure to second hand smoke: Yes Drug Use: none Patient Lives Alone: No - Nursing Vital Signs Nursing Vital Signs: Initial Vital Signs Temperature 97.3 F 02/28/24 10:14 Pulse Rate 112 H 02/28/24 10:14 Respiratory Rate 22 02/28/24 10:14 Blood Pressure 122/90 02/28/24 10:14 O2 Sat by Pulse Oximetry 98 02/28/24 10:14 Pain Scale Pain Intensity 6 - Physical Exam General Appearance: no apparent distress, alert, anxiety, obese Eye Exam: bilateral eye: normal inspection, PERRL, EOMI Ear Exam: bilateral ear: auricle normal Nasal Exam: normal inspection Throat Exam: moist mucus membranes, pharynx swelling, pharynx tenderness, tonsillar swelling, uvula swelling, No dental tenderness, No excessive drooling Neck Exam: lymphadenopathy (R), lymphadenopathy (L) Cardiovascular/Respiratory Exam: chest non-tender, normal breath sounds, regular rate/rhythm, heart sounds normal, no respiratory distress Abdominal Exam: non-tender Neurologic Exam: alert, oriented x 3, cooperative, clinic administrator II-XII nml as tested, nml cerebellar function, nml station & gait, sensation nml Skin Exam: normal color, warm, dry SpO2 Interpretation: normal O2 Delivery: Room Air - Course Nursing assessment & vital signs reviewed: Yes Ordered Tests: Medication Summary Discontinued Medications Generic Name Dose Route Start Last Admin Trade Name Freq PRN Reason Stop Dose Admin Hydrocodone Bitart/Acetaminophen 10 ml 02/28/24 10:13 02/28/24 10:37 Hydrocodone/Acetaminophen 5 Ml Udcup PO 02/28/24 10:14 10 ml STAT STA Administration Hydrocodone Bitart/Acetaminophen Confirm 02/28/24 10:31 Hydrocodone/Acetaminophen 5 Ml Udcup Administered 02/28/24 10:32 Dose 10 ml .ROUTE .STK-MED ONE Ceftriaxone Sodium 1,000 mg 02/28/24 10:13 02/28/24 10:37 Ceftriaxone Sodium 1000 Mg Inj Vial IM 02/28/24 10:14 1,000 mg STAT ONE Administration Ceftriaxone Sodium Confirm 02/28/24 10:31 Ceftriaxone Sodium 1000 Mg Inj Vial Administered 02/28/24 10:32 Dose 1,000 mg .ROUTE .STK-MED ONE Methylprednisolone Sodium 0 mg 02/28/24 10:13 02/28/24 10:38 Succinate 125 mg/ Sterile IM 02/28/24 10:14 125 mg Water 2 ml STAT ONE Administration Lidocaine HCl Confirm 02/28/24 10:31 Lidocaine Hcl 1% 20 Ml Mdv 20 Ml Ml Administered 02/28/24 10:32 Dose 3 ml .ROUTE .STK-MED ONE Methylprednisolone Sodium Succinate Confirm 02/28/24 10:31 Methylprednis Sod Succ 125 Mg/2 Ml Vial Administered 02/28/24 10:32 Dose 125 mg .ROUTE .STK-MED ONE Sterile Water Confirm 02/28/24 10:31 Water For Injection,Sterile 10 Ml Vial Administered 02/28/24 10:32 Dose 10 ml IJ .STK-MED ONE Lab/Rad Data: Laboratory Results 02/28/24 02/28/24 Range/Units 10:20 10:20 Influenza Type A Ag NEGATIVE (NEGATIVE) Influenza Type B Ag NEGATIVE (NEGATIVE) RSV (PCR) NEGATIVE (NEGATIVE) SARS-CoV-2 (PCR) NEGATIVE (NEGATIVE) Group A Strep Antibody DETECTED (NEGATIVE) - Progress Progress: improved, pain not gone completely, re-examined Progress Note: 02/28/24 10:22 My medical decision making and the assignment of low to moderate complexity to this patient's medical issue today is based on review of the patient's past medical history, review the patient's medication list, reviewed patient drug allergy, history present illness and physical findings on examination. The workup in this patient includes viral swabs, group A strep swab. In addition we will provide the patient with injection of Rocephin 1 g intramuscularly, intramuscular injection of Solu-Medrol 125 mg, and oral hydrocodone elixir. This patient's airway is not compromised. Her lungs are clear, there is no stridor and her room air oxygen saturation levels are 98 to 99%. Differential diagnosis includes but is not limited to pharyngitis, viral infection, uvulitis, neoplastic process. 02/28/24 11:35 I interpreted the patient's laboratory data results. The patient has group A strep pharyngitis. Counseled pt/family regarding: lab results, diagnosis, need for follow-up Medical Desision Making - Independent Historian Additional History obtained from: Family - Diagnostic Testing Diagnostic test were ordered, analyzed, and reviewed by me: Yes - Risk of complications The pt has a mod risk of morbidity or mortality based on: Need for prescription drug management - Departure Departure Disposition: Home Clinical Impression: Strep pharyngitis Condition: Stable Critical Care Time: No Referrals: DOCTOR,NO FAMILY [Primary Care Provider] - Follow up/PCP as directed Additional Instructions: Drink plenty of fluids. Avoid exposure to any kind of smoke. Take your antibiotics and other medications as prescribed. Make arrangements for follow- up appointment to be seen in the next 5 to 7 days with an outpatient provider Prescriptions: Amoxicillin 500 mg Cap [Amoxil 500 mg] 500 mg PO TID #30 cap Prednisone 10 mg [Deltasone 10 mg] 10 mg PO TID #12 tablet Hydrocodone/Acetaminophen [Hydrocodone-Acetamn 7.5-325/15] 10 ml PO Q8H PRN #120 ml MDD 30 ml PRN Reason: Cough
[2024-02-28 10:16] VITALS: TEMP 97.3
[2024-02-28] MEDS ORDERED: XYLOCAINE 1% HCL 20 ML MDV ONE (10:31)
[2024-02-28] MEDS ORDERED: HYDROCODONE-ACETAMIN 2.5-108/5 ML SOLUTION ONE (10:31)
[2024-02-28] MEDS ORDERED: Sterile H2O 10 ml IJ ONE (10:31)
[2024-02-28] MEDS ORDERED: solu-MEDROL ONE (10:31)
[2024-02-28] MEDS ORDERED: Rocephin 1000 MG INJ ONE (10:31)
[2024-02-28] MEDS: HYDROCODONE-ACETAMIN 2.5-108/5 ML SOLUTION PO STA (10:37)
[2024-02-28] MEDS: Rocephin 1000 MG INJ IM ONE (10:37)
[2024-02-28] MEDS: solu-MEDROL 125 MG, Sterile H2O 10 ml 2 ML IM ONE (10:38)
[2024-02-28 11:08] LABS: INFLUENZA A NEGATIVE (NEGATIVE); INFLUENZA B NEGATIVE (NEGATIVE); RESPIRATORY SYNCTIAL VIRUS NEGATIVE (NEGATIVE); SARS-CoV-2 Xpert Express NEGATIVE (NEGATIVE)
[2024-02-28 11:46] VITALS: BP 115/79; PULSE 84; RESP 18; O2SAT 96
== END 2024-02-28 11:45 | disposition home or self-care (01) ==
LOC: ED 09:52
DX: J02.0 Streptococcal pharyngitis (principal); R59.0 Localized enlarged lymph nodes; Z79.52 Long term (current) use of systemic steroids; Z79.891 Long term (current) use of opiate analgesic; Z79.899 Other long term (current) drug therapy
CPT/HCPCS: 0241U; 87651; 96372; 99283; J0696; J2919; A9270-GY